=== PATIENT | male | born 1970 | race Caucasian/White ===

== ENCOUNTER → 2016-06-29 | Outpatient (CLI) | payer MEDICARE, OTHER ==
[2016-06-29 09:39] LABS: Basophils # (A) 0.1 k/uL (0-0.2); Basophils % (A) 2 %; CH 35.6; CHCM 34.8; Eosinophils # (A) 0.2 k/uL (0-0.7); Eosinophils % (A) 6 %; HCT 30.7 % (39.0-53.0); HDW 3.22; HGB 10.2 gm/dL (13.0-17.5); Luc # (Auto) 0.08; Luc % (Auto) 2; Lymphocytes # (A) 0.9 k/uL (1.0-4.8); Lymphocytes % (A) 23 %; Macrocytosis Slight; Mean Platelet Volume 9.9; Monocytes # (A) 0.3 k/uL (0-1.0); Monocytes % (A) 8 %; Neutrophils # (A) 2.4 k/uL (1.3-7.7); Neutrophils % (A) 60 %; RBC 2.98 m/uL (4.30-5.90); RDW 14.2 % (11.5-15.5); WBC (Perox) 4.42
[2016-06-29 09:58] LABS: Appearance,Urine Clear (Clear); Bacteria,Urine Rare /hpf; Bilirubin,Urine Negative (Negative); Glucose,Urine (UA) Negative (Negative); Ketones,Urine Negative (Negative); Leukocyte Esterase,Urine Small (Negative); Mucus,Urine Rare /hpf; Nitrite,Urine Negative (Negative); PH, Urine 5.5 (5.0-8.0); Particle Count 3024; Protein,Urine 2+ (Negative); RBC,Urine 2 /hpf (0-5); Specific Gravity,Urine 1.009 (1.001-1.035); UA Billing (MACRO vs. MICRO) MICRO; Urobilinogen,Urine <2.0 mg/dL (<2.0); WBC,Urine 6 /hpf (0-5)
[2016-06-29 11:32] LABS: Calcium 9.5 mg/dL (8.4-10.2); Magnesium 1.9 mg/dL (1.6-2.3); Phosphorous 3.8 mg/dL (2.5-4.5); Potassium 4.9 mmol/L (3.5-5.1); Total Bilirubin 0.3 mg/dL (0.2-1.3); Total Protein 5.8 g/dL (6.3-8.2); Uric Acid 7.3 mg/dL (3.5-8.5)
[2016-06-29 11:42] LABS: % Iron Saturation 35.5 % (20-50)
== END | disposition home or self-care (01) ==
LOC: LABWHC1 09:19
PROVIDERS: ATTEND Nurse Practitioner Family
DX: N18.4 Chronic kidney disease, stage 4 (severe) (principal); D63.1 Anemia in chronic kidney disease; E55.9 Vitamin D deficiency, unspecified; M10.9 Gout, unspecified; R31.9 Hematuria, unspecified
CPT/HCPCS: 36415; 80053; 81001; 82306; 82728; 83540; 83550; 83735; 83970; 84100; 84550; 85025

== ENCOUNTER 2016-07-21 11:36 | Emergency (ER) | payer MEDICARE, OTHER ==
[2016-07-21 11:46] VITALS: RESP 20
[2016-07-21 13:34] LABS: Calcium 9.4 mg/dL (8.4-10.2); Total Bilirubin 0.5 mg/dL (0.2-1.3); Total Protein 6.5 g/dL (6.3-8.2)
--- NOTE | 2016-07-21 13:46 | CT ---
EXAMINATION TYPE: CT brain petr carrizales con DATE OF EXAM: 07/21/2016 1:34 PM COMPARISON: NONE HISTORY: seizure today CT DLP: 1525.8 mGycm Automated exposure control for dose reduction was used. TECHNIQUE: CT scan of the head and cervical spine are performed without contrast. FINDINGS: There is no acute intracranial hemorrhage, mass effect, or midline shift identified. Dens e calcifications within the basal ganglia bilaterally. 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 Mild to moderate generalized degenerative change. Periventricular low attenuation compatible with rem ote microvascular ischemia. Calvarium intact.. Cervical spine is visualized in its entirety from C1 through upper thoracic levels and demonstrates s evere degenerative disc disease at all levels. Cervical spondylosis posteriorly seen in C4-C5, C5-C6, C6-C7, C7-T1 and T1-T2. Canal stenosis and foraminal encroachment suspected these levels. Significan t compression of the thecal sac at C7-T1. Multilevel facet arthropathy. IMPRESSION: 1. There is no acute fracture or dislocation evident in the cervical spine. There is severe degenerat hosea disc disease at all levels with multilevel significant canal stenosis and thecal sac compression. Follow-up MRI recommended. 2. No acute intracranial hemorrhage, mass effect, or midline shift is seen.
[2016-07-21 13:52] LABS: Basophils % (A) 0 %; CHCM 34.5; Eosinophils # (A) 0.1 k/uL (0-0.7); Eosinophils % (A) 1 %; HCT 35.2 % (39.0-53.0); HDW 3.37; HGB 11.8 gm/dL (13.0-17.5); Luc # (Auto) 0.05; Luc % (Auto) 1; Lymphocytes # (A) 0.5 k/uL (1.0-4.8); Lymphocytes % (A) 6 %; MCH 34.2 pg (25.0-35.0); MCHC 33.5 g/dL (31.0-37.0); Macrocytosis Slight; Monocytes # (A) 0.3 k/uL (0-1.0); Monocytes % (A) 3 %; Neutrophils # (A) 7.5 k/uL (1.3-7.7); Neutrophils % (A) 89 %; RBC 3.45 m/uL (4.30-5.90); RDW 14.5 % (11.5-15.5); WBC 8.4 k/uL (3.8-10.6); WBC (Perox) 8.66
[2016-07-21] MEDS ORDERED: SODIUM POLYSTYRENE SULFONATE 15 GM/60 ML BOTTLE PO STA (14:56)
[2016-07-21] MEDS ORDERED: INSULIN REGULAR 100 UNIT/ML VIAL SQ STA (14:56)
[2016-07-21 15:17] VITALS: BP 128/61; PULSE 96; TEMP 97.8
--- NOTE | 2016-07-21 15:24 | ED ---
Seizure HPI - General Chief Complaint: Seizure Stated Complaint: seizure Time Seen by Provider: 07/21/16 11:42 Source: EMS, RN notes reviewed Mode of arrival: EMS Limitations: physical limitation - History of Present Illness Initial Comments: This patient is a 46-year-old man with history of Down syndrome, who comes from his long-term care facility, in the company of his caregiver. She gives most of the history as the patient is only able to give answers to simple questions. The patient reportedly was in his usual state of health and then this morning had a seizure. The patient's caregiver reports that he fell over, struck his for head, and was having tonic-clonic movements. He also had a loss of urinary continence. She then describes him having a postictal period. -: minutes(s) Description of Episode: loss of consciousness, tonic-clonic movement, bladder incontinence -: second(s) Witnessed: yes - by other (By caregiver) Trauma: Yes (See above) Place: home Possible Precipitating Event: none Associated Symptoms: denies other symptoms Treatments Prior to Arrival: cervical collar - Related Data Home Medications Medication Instructions Recorded Confirmed Aspirin 81 mg PO DAILY 01/20/14 07/21/16 Insulin Glargine,Hum.rec.anlog 22 unit SQ HS 01/20/14 07/21/16 [Lantus Solostar] Simvastatin [Zocor] 10 mg PO HS 01/20/14 07/21/16 fluvoxaMINE MALEATE [Fluvoxamine 225 mg PO BID 01/20/14 07/21/16 Maleate ER] Lactulose 10 gm PO BID 10/02/14 07/21/16 Insulin Lispro [humaLOG Kwikpen] 6 units SQ AC-TID 10/14/14 07/21/16 Insulin Lispro [humaLOG Kwikpen] See Protocol SQ AC-TID 10/14/14 07/21/16 Calcium Acetate [Phoslo] 1,334 mg PO BID@0700,1200 07/21/16 07/21/16 Calcium Acetate [Phoslo] 667 mg PO DAILY@1800 07/21/16 07/21/16 Ergocalciferol [Vitamin D2] 50,000 unit PO Q14D 07/21/16 07/21/16 Famotidine [Pepcid] 20 mg PO QAM 07/21/16 07/21/16 Ferrous Sulfate 140 mg PO QAM 07/21/16 07/21/16 Levothyroxine Sodium [Synthroid] 175 mcg PO DAILY 07/21/16 07/21/16 Loratadine [Claritin] 10 mg PO HS 07/21/16 07/21/16 Melatonin 1 mg PO HS 07/21/16 07/21/16 Metoclopramide [Reglan] 5 mg PO BID@0700,1700 07/21/16 07/21/16 Sodium Polystyrene Sulfon/Sorb 15 gm PO DAILY 07/21/16 07/21/16 [Kionex 15 gm/60 ml Suspension] Tamsulosin [Flomax] 0.4 mg PO QAM 07/21/16 07/21/16 Vitamin B Complex 1 cap PO DAILY 07/21/16 07/21/16 Allergies Allergy/AdvReac Type Severity Reaction Status Date / Time No Known Allergies Allergy Verified 07/21/16 12:18 Review of Systems ROS Statement: Those systems with pertinent positive or pertinent negative responses have been documented in the HPI. ROS Other: All systems not noted in ROS Statement are negative. Limitations: ROS unobtainable due to patients medical condition Past Medical History Past Medical History: Diabetes Mellitus, Hyperlipidemia, Hypertension, Renal Disease, Seizure Disorder, Thyroid Disorder Additional Past Medical History / Comment(s): down syndrome, gastroparesis History of Any Multi-Drug Resistant Organisms: None Reported Past Surgical History: Unable to Obtain Additional Past Surgical History / Comment(s): EAR surgery Past Anesthesia/Blood Transfusion Reactions: Unable to Obtain Past Psychological History: No Psychological Hx Reported Additional Psychological History / Comment(s): PT LIVES AT [facility] HAS DOWNS SYNDROME, NEEDS STANDBY ASSIST.CANE WRITE HIS OWN NAME(PER CAREGIVER) SPEAKS OCC WORD, OCC OUTBURSTS. UNABLE TO DO RISK SCREEN QUESTIONS PERTAINING TO DEPRESSION-PT UNABLE TO ANSWER, BUT CAREGIVER FROM [facility] DID' NT THINK PT HAD PROBLEM WITH DEPRESSION. Smoking Status: Never smoker Past Alcohol Use History: None Reported Past Drug Use History: None Reported - Past Family History Mother Family Medical History: Unable to Obtain Father Family Medical History: Unable to Obtain General Exam Limitations: physical limitation General appearance: alert, in no apparent distress Head exam: Present: normocephalic, other (There is a small contusion to the frontal scalp approximately 3 cm in diameter. There is mild tenderness. There is no obvious bony deformity.) Eye exam: Present: normal appearance, PERRL. Absent: scleral icterus, conjunctival injection ENT exam: Present: mucous membranes dry Neck exam: Present: normal inspection, other (Cervical collar) Respiratory exam: Present: normal lung sounds bilaterally. Absent: respiratory distress, wheezes, rales, rhonchi, stridor Cardiovascular Exam: Present: regular rate, normal rhythm, systolic murmur ( Grade 1/6 systolic murmur). Absent: diastolic murmur, rubs, gallop GI/Abdominal exam: Present: soft. Absent: distended, tenderness, guarding, rebound, pulsatile mass Extremities exam: Present: normal inspection, normal capillary refill. Absent: pedal edema, calf tenderness Back exam: Present: normal inspection. Absent: CVA tenderness (R), CVA tenderness (L) Neurological exam: Present: alert, CN II-XII intact. Absent: motor sensory deficit Skin exam: Present: warm, dry, intact, normal color. Absent: rash Course Vital Signs 07/21/16 07/21/16 11:40 15:15 Temperature 98.1 F 97.8 F Pulse Rate 88 96 Respiratory 20 20 Rate Blood Pressure 134/63 128/61 O2 Sat by Pulse 93 L 99 Oximetry Medical Decision Making - Medical Decision Making This patient is a 46-year-old man with history of Down syndrome, brought for evaluation after he had a seizure. Patient is currently undergoing outpatient workup and will be starting dialysis soon. He does reportedly have appointment to have vascular access placement. Workup today does reveal some mild hyperkalemia and some hyperglycemia. These are treated here. The patient is at baseline per the caregiver. He has been up and ambulating. He did tolerate oral intake. I discussed further follow-up, including neurology consultation and also a recheck of the potassium. These things discussed with caregiver who is aware of how important is to have the potassium rechecked. - Lab Data Result diagrams: 07/21/16 13:01 07/21/16 13:01 Lab Results 07/21/16 07/21/16 Range/Units 13:01 13:01 WBC 8.4 (3.8-10.6) k/uL RBC 3.45 L (4.30-5.90) m/uL Hgb 11.8 L (13.0-17.5) gm/dL Hct 35.2 L (39.0-53.0) % MCV 102.0 H (80.0-100.0) fL MCH 34.2 (25.0-35.0) pg MCHC 33.5 (31.0-37.0) g/dL RDW 14.5 (11.5-15.5) % Plt Count 165 (150-450) k/uL Neutrophils % 89 % Lymphocytes % 6 % Monocytes % 3 % Eosinophils % 1 % Basophils % 0 % Neutrophils # 7.5 (1.3-7.7) k/uL Lymphocytes # 0.5 L (1.0-4.8) k/uL Monocytes # 0.3 (0-1.0) k/uL Eosinophils # 0.1 (0-0.7) k/uL Basophils # 0.0 (0-0.2) k/uL Macrocytosis Slight Sodium 138 (137-145) mmol/L Potassium 6.0 H (3.5-5.1) mmol/L Chloride 99 (98-107) mmol/L Carbon Dioxide 29 (22-30) mmol/L Anion Gap 10 mmol/L BUN 69 H (9-20) mg/dL Creatinine 4.11 H (0.66-1.25) mg/dL Est GFR (MDRD) Af Amer 19 (>60 ml/min/1.73 sqM) Est GFR (MDRD) Non-Af 16 (>60 ml/min/1.73 sqM) Glucose 331 H (74-99) mg/dL Calcium 9.4 (8.4-10.2) mg/dL Total Bilirubin 0.5 (0.2-1.3) mg/dL AST 23 (17-59) U/L ALT 38 (21-72) U/L Alkaline Phosphatase 75 (38-126) U/L Total Protein 6.5 (6.3-8.2) g/dL Albumin 3.6 (3.5-5.0) g/dL Disposition Clinical Impression: Generalized seizure, Hyperglycemia due to type 1 diabetes mellitus, Hyperkalemia Disposition: HOME SELF-CARE Condition: Fair Instructions: Recurrent Seizures in Adults (ED), Chronic Kidney Disease (ED), Hyperkalemia (ED) Referrals: Hawk Cazares MD [Primary Care Provider] - 1-2 days Scott Mcqueen MD [STAFF PHYSICIAN] - 1-2 days Philly Muñoz MD [STAFF PHYSICIAN] - 1-2 days
== END 2016-07-21 16:07 | disposition home or self-care (01) ==
LOC: EC 11:36
DX: G40.409 Other generalized epilepsy and epileptic syndromes, not intractable, without status epilepticus (principal); E10.65 Type 1 diabetes mellitus with hyperglycemia; E87.5 Hyperkalemia; S00.03XA Contusion of scalp, initial encounter; W01.10XA Fall on same level from slipping, tripping and stumbling with subsequent striking against unspecified object, initial encounter; Y92.009 Unspecified place in unspecified non-institutional (private) residence as the place of occurrence of the external cause; I12.9 Hypertensive chronic kidney disease with stage 1 through stage 4 chronic kidney disease, or unspecified chronic kidney disease; N18.9 Chronic kidney disease, unspecified; K31.84 Gastroparesis; Q90.9 Down syndrome, unspecified; E07.9 Disorder of thyroid, unspecified; E78.5 Hyperlipidemia, unspecified; Z79.4 Long term (current) use of insulin; Z79.82 Long term (current) use of aspirin; Z79.899 Other long term (current) drug therapy
CPT/HCPCS: 36415; 70450; 72125; 80053; 85025; 93005; 99285

== ENCOUNTER 2016-12-20 20:29 | Emergency (ER) | payer MEDICARE, OTHER ==
[2016-12-20 20:34] LABS: Glucose,Whole Blood 85 mg/dL (75-99)
[2016-12-20 20:47] LABS: Glucose,Whole Blood 73 mg/dL (75-99)
[2016-12-20 21:20] LABS: Glucose,Whole Blood 91 mg/dL (75-99)
--- NOTE | 2016-12-20 21:40 | ED ---
General Adult HPI - General Chief complaint: Recheck/Abnormal Lab/Rx Stated complaint: HYPOGLYCEMIA Time Seen by Provider: 12/20/16 20:45 Source: EMS (History taken from heating plant superintendent.), RN notes reviewed Mode of arrival: EMS Limitations: altered mental status - History of Present Illness Initial comments: Patient is a pleasant 46-year-old male presenting to the emergency department with hypoglycemia. Patient had hypoglycemia this morning and did receive his). Patient then became hyper glycemic throughout the day. Patient's blood sugar started dropping again prior to arrival. Patient has developmental delay and is not talking at this time. Grocery Store Associate states this is normal. No change in behavior. No recent illness. - Related Data Home Medications Medication Instructions Recorded Confirmed Aspirin 81 mg PO DAILY 01/20/14 12/20/16 Insulin Glargine,Hum.rec.anlog 22 unit SQ HS 01/20/14 12/20/16 [Lantus Solostar] Simvastatin [Zocor] 10 mg PO HS 01/20/14 12/20/16 Lactulose 10 gm PO BID 10/02/14 12/20/16 Insulin Lispro [humaLOG Kwikpen] 6 units SQ AC-TID 10/14/14 12/20/16 Insulin Lispro [humaLOG Kwikpen] See Protocol SQ AC-TID 10/14/14 12/20/16 Ergocalciferol [Vitamin D2] 50,000 unit PO Q14D 07/21/16 12/20/16 Famotidine [Pepcid] 20 mg PO QAM 07/21/16 12/20/16 Ferrous Sulfate 140 mg PO QAM 07/21/16 12/20/16 Levothyroxine Sodium [Synthroid] 175 mcg PO DAILY 07/21/16 12/20/16 Loratadine [Claritin] 10 mg PO HS 07/21/16 12/20/16 Metoclopramide [Reglan] 5 mg PO BID@0700,1700 07/21/16 12/20/16 Sodium Polystyrene Sulfon/Sorb 15 gm PO DAILY 07/21/16 12/20/16 [Kionex 15 gm/60 ml Suspension] Tamsulosin [Flomax] 0.4 mg PO QAM 07/21/16 12/20/16 Vitamin B Complex 1 cap PO DAILY 07/21/16 12/20/16 fluvoxaMINE MALEATE [Luvox] 150 mg PO BID 12/20/16 12/20/16 Allergies Allergy/AdvReac Type Severity Reaction Status Date / Time No Known Allergies Allergy Verified 12/20/16 20:49 Review of Systems ROS Statement: Those systems with pertinent positive or pertinent negative responses have been documented in the HPI. ROS Other: All systems not noted in ROS Statement are negative. Limitations: ROS unobtainable due to patients medical condition Past Medical History Past Medical History: Diabetes Mellitus, Hyperlipidemia, Hypertension, Renal Disease, Thyroid Disorder Additional Past Medical History / Comment(s): down syndrome, gastroparesis History of Any Multi-Drug Resistant Organisms: None Reported Past Surgical History: Unable to Obtain Additional Past Surgical History / Comment(s): EAR surgery Past Anesthesia/Blood Transfusion Reactions: Unable to Obtain Past Psychological History: No Psychological Hx Reported Smoking Status: Never smoker Past Alcohol Use History: None Reported Past Drug Use History: None Reported - Past Family History Mother Family Medical History: Unable to Obtain Father Family Medical History: Unable to Obtain General Exam Limitations: altered mental status General appearance: alert, in no apparent distress Head exam: Present: atraumatic Eye exam: Present: normal appearance Neck exam: Present: normal inspection Respiratory exam: Present: normal lung sounds bilaterally Cardiovascular Exam: Present: regular rate, normal rhythm GI/Abdominal exam: Present: soft. Absent: tenderness Extremities exam: Present: normal inspection Neurological exam: Present: alert Psychiatric exam: Present: normal affect, normal mood Skin exam: Present: normal color Course Vital Signs 12/20/16 12/20/16 20:30 21:53 Temperature 98.5 F Pulse Rate 102 H 91 Respiratory 17 18 Rate Blood Pressure 120/67 159/78 O2 Sat by Pulse 97 99 Oximetry Medical Decision Making - Medical Decision Making Patient reexamined and resting comfortably in bed. Grocery Store Associate updated on results and need for follow-up. Patient has had several stable blood sugars. - Lab Data Result diagrams: 12/20/16 21:40 12/20/16 21:40 Lab Results 12/20/16 12/20/16 12/20/16 Range/Units 20:31 20:46 21:18 WBC (3.8-10.6) k/uL RBC (4.30-5.90) m/uL Hgb (13.0-17.5) gm/dL Hct (39.0-53.0) % MCV (80.0-100.0) fL MCH (25.0-35.0) pg MCHC (31.0-37.0) g/dL RDW (11.5-15.5) % Plt Count (150-450) k/uL Neutrophils % % Lymphocytes % % Monocytes % % Eosinophils % % Basophils % % Neutrophils # (1.3-7.7) k/uL Lymphocytes # (1.0-4.8) k/uL Monocytes # (0-1.0) k/uL Eosinophils # (0-0.7) k/uL Basophils # (0-0.2) k/uL Macrocytosis Sodium (137-145) mmol/L Potassium (3.5-5.1) mmol/L Chloride (98-107) mmol/L Carbon Dioxide (22-30) mmol/L Anion Gap mmol/L BUN (9-20) mg/dL Creatinine (0.66-1.25) mg/dL Est GFR (MDRD) Af Amer (>60 ml/min/1.73 sqM) Est GFR (MDRD) Non-Af (>60 ml/min/1.73 sqM) Glucose (74-99) mg/dL POC Glucose (mg/dL) 85 73 L 91 (75-99) mg/dL POC Glu Catering Assistant PEYTON Harris, Anushka Harris, Manny Hughes Calcium (8.4-10.2) mg/dL Total Bilirubin (0.2-1.3) mg/dL AST (17-59) U/L ALT (21-72) U/L Alkaline Phosphatase (38-126) U/L Total Protein (6.3-8.2) g/dL Albumin (3.5-5.0) g/dL Urine Color Urine Appearance (Clear) Urine pH (5.0-8.0) Ur Specific [place] (1.001-1.035) Urine Protein (Negative) Urine Glucose (UA) (Negative) Urine Ketones (Negative) Urine Blood (Negative) Urine Nitrite (Negative) Urine Bilirubin (Negative) Urine Urobilinogen (<2.0) mg/dL Ur Leukocyte Esterase (Negative) Urine RBC (0-5) /hpf Urine WBC (0-5) /hpf Urine Bacteria (None) /hpf Hyaline Casts (0-2) /lpf 12/20/16 12/20/16 12/20/16 Range/Units 21:33 21:40 21:40 WBC 6.7 (3.8-10.6) k/uL RBC 2.80 L (4.30-5.90) m/uL Hgb 9.8 L (13.0-17.5) gm/dL Hct 28.3 L (39.0-53.0) % MCV 101.1 H (80.0-100.0) fL MCH 35.0 (25.0-35.0) pg MCHC 34.6 (31.0-37.0) g/dL RDW 13.6 (11.5-15.5) % Plt Count 165 (150-450) k/uL Neutrophils % 80 % Lymphocytes % 10 % Monocytes % 6 % Eosinophils % 3 % Basophils % 1 % Neutrophils # 5.4 (1.3-7.7) k/uL Lymphocytes # 0.6 L (1.0-4.8) k/uL Monocytes # 0.4 (0-1.0) k/uL Eosinophils # 0.2 (0-0.7) k/uL Basophils # 0.1 (0-0.2) k/uL Macrocytosis Slight Sodium 141 (137-145) mmol/L Potassium 5.0 (3.5-5.1) mmol/L Chloride 106 (98-107) mmol/L Carbon Dioxide 23 (22-30) mmol/L Anion Gap 12 mmol/L BUN 68 H (9-20) mg/dL Creatinine 4.00 H (0.66-1.25) mg/dL Est GFR (MDRD) Af Amer 20 (>60 ml/min/1.73 sqM) Est GFR (MDRD) Non-Af 16 (>60 ml/min/1.73 sqM) Glucose 104 H (74-99) mg/dL POC Glucose (mg/dL) (75-99) mg/dL POC Glu Catering Assistant ID Calcium 8.8 (8.4-10.2) mg/dL Total Bilirubin 0.2 (0.2-1.3) mg/dL AST 23 (17-59) U/L ALT 39 (21-72) U/L Alkaline Phosphatase 70 (38-126) U/L Total Protein 6.1 L (6.3-8.2) g/dL Albumin 3.5 (3.5-5.0) g/dL Urine Color Light Yellow Urine Appearance Clear (Clear) Urine pH 5.5 (5.0-8.0) Ur Specific [place] 1.009 (1.001-1.035) Urine Protein 2+ H (Negative) Urine Glucose (UA) 1+ H (Negative) Urine Ketones Negative (Negative) Urine Blood Trace H (Negative) Urine Nitrite Negative (Negative) Urine Bilirubin Negative (Negative) Urine Urobilinogen <2.0 (<2.0) mg/dL Ur Leukocyte Esterase Negative (Negative) Urine RBC 1 (0-5) /hpf Urine WBC 1 (0-5) /hpf Urine Bacteria Rare H (None) /hpf Hyaline Casts 1 (0-2) /lpf 12/20/16 Range/Units 21:48 WBC (3.8-10.6) k/uL RBC (4.30-5.90) m/uL Hgb (13.0-17.5) gm/dL Hct (39.0-53.0) % MCV (80.0-100.0) fL MCH (25.0-35.0) pg MCHC (31.0-37.0) g/dL RDW (11.5-15.5) % Plt Count (150-450) k/uL Neutrophils % % Lymphocytes % % Monocytes % % Eosinophils % % Basophils % % Neutrophils # (1.3-7.7) k/uL Lymphocytes # (1.0-4.8) k/uL Monocytes # (0-1.0) k/uL Eosinophils # (0-0.7) k/uL Basophils # (0-0.2) k/uL Macrocytosis Sodium (137-145) mmol/L Potassium (3.5-5.1) mmol/L Chloride (98-107) mmol/L Carbon Dioxide (22-30) mmol/L Anion Gap mmol/L BUN (9-20) mg/dL Creatinine (0.66-1.25) mg/dL Est GFR (MDRD) Af Amer (>60 ml/min/1.73 sqM) Est GFR (MDRD) Non-Af (>60 ml/min/1.73 sqM) Glucose (74-99) mg/dL POC Glucose (mg/dL) 119 H (75-99) mg/dL POC Glu Catering Assistant Anushka Stephen Calcium (8.4-10.2) mg/dL Total Bilirubin (0.2-1.3) mg/dL AST (17-59) U/L ALT (21-72) U/L Alkaline Phosphatase (38-126) U/L Total Protein (6.3-8.2) g/dL Albumin (3.5-5.0) g/dL Urine Color Urine Appearance (Clear) Urine pH (5.0-8.0) Ur Specific [place] (1.001-1.035) Urine Protein (Negative) Urine Glucose (UA) (Negative) Urine Ketones (Negative) Urine Blood (Negative) Urine Nitrite (Negative) Urine Bilirubin (Negative) Urine Urobilinogen (<2.0) mg/dL Ur Leukocyte Esterase (Negative) Urine RBC (0-5) /hpf Urine WBC (0-5) /hpf Urine Bacteria (None) /hpf Hyaline Casts (0-2) /lpf - Radiology Data Radiology results: image reviewed (Chest x-ray does show some mild increase in interstitial markings) Disposition Clinical Impression: Hypoglycemia Disposition: HOME SELF-CARE Condition: Stable Instructions: Hypoglycemia in a Person with Diabetes (ED) Additional Instructions: Please follow-up with primary care physician within the next 24 hours. Patient will need further care regarding sugar levels. Return for uncontrolled blood sugar, weakness or confusion, worsening symptoms or other concerns. Referrals: Hawk Cazares MD [Primary Care Provider] - 1-2 days Time of Disposition: 22:32
[2016-12-20 21:49] LABS: Glucose,Whole Blood 119 mg/dL (75-99)
[2016-12-20 21:56] VITALS: PULSE 91; RESP 18
[2016-12-20 22:06] LABS: Basophils # (A) 0.1 k/uL (0-0.2); Basophils % (A) 1 %; CHCM 35.7; Eosinophils # (A) 0.2 k/uL (0-0.7); Eosinophils % (A) 3 %; HCT 28.3 % (39.0-53.0); HDW 2.76; HGB 9.8 gm/dL (13.0-17.5); Luc # (Auto) 0.09; Luc % (Auto) 1; Lymphocytes # (A) 0.6 k/uL (1.0-4.8); Lymphocytes % (A) 10 %; MCHC 34.6 g/dL (31.0-37.0); MCV 101.1 fL (80.0-100.0); Macrocytosis Slight; Mean Platelet Volume 8.1; Monocytes # (A) 0.4 k/uL (0-1.0); Monocytes % (A) 6 %; Neutrophils # (A) 5.4 k/uL (1.3-7.7); Neutrophils % (A) 80 %; RDW 13.6 % (11.5-15.5); WBC 6.7 k/uL (3.8-10.6); WBC (Perox) 6.51
--- NOTE | 2016-12-20 22:07 | XR ---
EXAMINATION TYPE: XR chest 2V DATE OF EXAM: 12/20/2016 COMPARISON: October 03, 2014 HISTORY: Weakness TECHNIQUE: Frontal and lateral views of the chest are obtained. FINDINGS: There is mild silhouetting of the lung vasculature bilaterally and symmetrically, with occ asional septal lines. The pattern suggests mild interstitial phase pulmonary edema. The cardiac silho uette is mildly enlarged. There are no pleural effusions. No abnormal gas collections. Bones and soft tissues are unremarkable. IMPRESSION: Findings suggest mild interstitial phase pulmonary edema of cardiogenic etiology.
[2016-12-20 22:16] LABS: Calcium 8.8 mg/dL (8.4-10.2); Total Bilirubin 0.2 mg/dL (0.2-1.3); Total Protein 6.1 g/dL (6.3-8.2)
[2016-12-20 22:19] LABS: Appearance,Urine Clear (Clear); Bacteria,Urine Rare /hpf; Bilirubin,Urine Negative (Negative); Glucose,Urine (UA) 1+ (Negative); Ketones,Urine Negative (Negative); Leukocyte Esterase,Urine Negative (Negative); Nitrite,Urine Negative (Negative); PH, Urine 5.5 (5.0-8.0); Particle Count 672; Protein,Urine 2+ (Negative); RBC,Urine 1 /hpf (0-5); Specific Gravity,Urine 1.009 (1.001-1.035); UA Billing (MACRO vs. MICRO) MICRO; Urobilinogen,Urine <2.0 mg/dL (<2.0); WBC,Urine 1 /hpf (0-5)
[2016-12-20 22:57] LABS: Glucose,Whole Blood 172 mg/dL (75-99)
[2016-12-20 22:58] VITALS: BP 160/75; TEMP 97.5
== END 2016-12-20 23:07 | disposition home or self-care (01) ==
LOC: EC 20:29
DX: E11.649 Type 2 diabetes mellitus with hypoglycemia without coma (principal); R41.82 Altered mental status, unspecified; R91.8 Other nonspecific abnormal finding of lung field; E78.5 Hyperlipidemia, unspecified; I10 Essential (primary) hypertension; E07.9 Disorder of thyroid, unspecified; Z79.4 Long term (current) use of insulin; Z79.82 Long term (current) use of aspirin; Z79.899 Other long term (current) drug therapy
CPT/HCPCS: 36415; 71020; 80053; 81001; 85025; 99285

== ENCOUNTER 2017-06-23 02:30 | Emergency (ER) | payer MEDICARE, OTHER ==
[2017-06-23 02:40] VITALS: RESP 16; TEMP 97.3
[2017-06-23 03:06] LABS: Glucose,Whole Blood 140 mg/dL (75-99)
[2017-06-23 03:19] LABS: Albumin 3.3 g/dL (3.5-5.0); Calcium 8.9 mg/dL (8.4-10.2); Potassium 4.2 mmol/L (3.5-5.1); Total Bilirubin 0.3 mg/dL (0.2-1.3); Total Protein 5.8 g/dL (6.3-8.2)
[2017-06-23 03:21] LABS: Anisocytosis Slight; Basophils % (A) 1 %; Eosinophils # (A) 0.1 k/uL (0-0.7); Eosinophils % (A) 1 %; HCT 31.9 % (39.0-53.0); HGB 10.6 gm/dL (13.0-17.5); Lymphocytes # (A) 0.5 k/uL (1.0-4.8); Lymphocytes % (A) 8 %; MCH 34.1 pg (25.0-35.0); MCHC 33.1 g/dL (31.0-37.0); MCV 103.1 fL (80.0-100.0); Macrocytosis Moderate; Mean Platelet Volume 8.2; Monocytes # (A) 0.2 k/uL (0-1.0); Monocytes % (A) 4 %; Neutrophils # (A) 5.3 k/uL (1.3-7.7); Neutrophils % (A) 85 %; Platelet Count 129 k/uL (150-450); RDW 16.7 % (11.5-15.5); WBC 6.2 k/uL (3.8-10.6)
[2017-06-23 03:32] LABS: Glucose,Whole Blood 130 mg/dL (75-99)
--- NOTE | 2017-06-23 03:32 | ED ---
Recheck HPI - General Chief Complaint: Recheck/Abnormal Lab/Rx Stated Complaint: Hypoglycemia Time Seen by Provider: 06/23/17 02:35 Source: patient, EMS, RN notes reviewed Mode of arrival: EMS Limitations: altered mental status - History of Present Illness Initial Comments: This a 47-year-old male presents emergency department via EMS for hypoglycemia. Patient has a history of Down syndrome essentially nonverbal was found to be not acting appropriately seemed to possibly have a seizure as he has a history of seizure dose on have blood sugar of 40. Patient was given D10 250 mL bolus which patient aroused at that time. Patient is at his normal baseline per [facility] worker. Patient did receive his nighttime insulin and reportedly had a snack around 9:30pm. There is no other reported complaints. - Related Data Home Medications Medication Instructions Recorded Confirmed Aspirin 81 mg PO DAILY 01/20/14 12/20/16 Insulin Glargine,Hum.rec.anlog 22 unit SQ HS 01/20/14 12/20/16 [Lantus Solostar] Simvastatin [Zocor] 10 mg PO HS 01/20/14 12/20/16 Lactulose 10 gm PO BID 10/02/14 12/20/16 Insulin Lispro [humaLOG Kwikpen] 6 units SQ AC-TID 10/14/14 12/20/16 Insulin Lispro [humaLOG Kwikpen] See Protocol SQ AC-TID 10/14/14 12/20/16 Ergocalciferol [Vitamin D2] 50,000 unit PO Q14D 07/21/16 12/20/16 Famotidine [Pepcid] 20 mg PO QAM 07/21/16 12/20/16 Ferrous Sulfate 140 mg PO QAM 07/21/16 12/20/16 Levothyroxine Sodium [Synthroid] 175 mcg PO DAILY 07/21/16 12/20/16 Loratadine [Claritin] 10 mg PO HS 07/21/16 12/20/16 Metoclopramide [Reglan] 5 mg PO BID@0700,1700 07/21/16 12/20/16 Sodium Polystyrene Sulfon/Sorb 15 gm PO DAILY 07/21/16 12/20/16 [Kionex 15 gm/60 ml Suspension] Tamsulosin [Flomax] 0.4 mg PO QAM 07/21/16 12/20/16 Vitamin B Complex 1 cap PO DAILY 07/21/16 12/20/16 fluvoxaMINE MALEATE [Luvox] 150 mg PO BID 12/20/16 12/20/16 Allergies Allergy/AdvReac Type Severity Reaction Status Date / Time No Known Allergies Allergy Verified 12/20/16 20:49 Review of Systems ROS Statement: Those systems with pertinent positive or pertinent negative responses have been documented in the HPI. ROS Other: All systems not noted in ROS Statement are negative. Past Medical History Past Medical History: Diabetes Mellitus, Hyperlipidemia, Hypertension, Renal Disease, Thyroid Disorder Additional Past Medical History / Comment(s): down syndrome, gastroparesis History of Any Multi-Drug Resistant Organisms: None Reported Past Surgical History: Unable to Obtain Additional Past Surgical History / Comment(s): EAR surgery Past Anesthesia/Blood Transfusion Reactions: Unable to Obtain Past Psychological History: No Psychological Hx Reported Smoking Status: Never smoker Past Alcohol Use History: None Reported Past Drug Use History: None Reported - Past Family History Mother Family Medical History: Unable to Obtain Father Family Medical History: Unable to Obtain General Exam Limitations: altered mental status Head exam: Present: atraumatic, normocephalic, normal inspection Eye exam: Present: normal appearance, PERRL, EOMI. Absent: scleral icterus, conjunctival injection, periorbital swelling ENT exam: Present: normal oropharynx Neck exam: Present: normal inspection, full ROM. Absent: tenderness, meningismus, lymphadenopathy Respiratory exam: Present: normal lung sounds bilaterally. Absent: respiratory distress, wheezes, rales, rhonchi, stridor Cardiovascular Exam: Present: regular rate, normal rhythm, normal heart sounds. Absent: systolic murmur, diastolic murmur, rubs, gallop, clicks Neurological exam: Present: alert Skin exam: Present: warm, dry, intact, normal color. Absent: rash Course Vital Signs 06/23/17 02:31 Temperature 97.3 F L Pulse Rate 70 Respiratory 16 Rate Blood Pressure 155/86 O2 Sat by Pulse 94 L Oximetry Medical Decision Making - Medical Decision Making 47-year-old male present emergency department for hypoglycemia. Patient's blood sugar has stabilized. Patient blood sugar is currently 130. Patient is awake alert and his normal baseline Patient sugar is updated and results she agrees that he is at his baseline. Patient we discharged at this time back to [facility] home. - Lab Data Result diagrams: 06/23/17 02:54 06/23/17 02:54 Lab Results 06/23/17 06/23/17 06/23/17 Range/Units 02:51 02:54 02:54 WBC 6.2 (3.8-10.6) k/uL RBC 3.10 L (4.30-5.90) m/uL Hgb 10.6 L (13.0-17.5) gm/dL Hct 31.9 L (39.0-53.0) % MCV 103.1 H (80.0-100.0) fL MCH 34.1 (25.0-35.0) pg MCHC 33.1 (31.0-37.0) g/dL RDW 16.7 H (11.5-15.5) % Plt Count 129 L (150-450) k/uL Neutrophils % 85 % Lymphocytes % 8 % Monocytes % 4 % Eosinophils % 1 % Basophils % 1 % Neutrophils # 5.3 (1.3-7.7) k/uL Lymphocytes # 0.5 L (1.0-4.8) k/uL Monocytes # 0.2 (0-1.0) k/uL Eosinophils # 0.1 (0-0.7) k/uL Basophils # 0.0 (0-0.2) k/uL Anisocytosis Slight Macrocytosis Moderate Sodium 139 (137-145) mmol/L Potassium 4.2 (3.5-5.1) mmol/L Chloride 100 (98-107) mmol/L Carbon Dioxide 34 H (22-30) mmol/L Anion Gap 5 mmol/L BUN 21 H (9-20) mg/dL Creatinine 3.20 H (0.66-1.25) mg/dL Est GFR (MDRD) Af Amer 25 (>60 ml/min/1.73 sqM) Est GFR (MDRD) Non-Af 21 (>60 ml/min/1.73 sqM) Glucose 153 H (74-99) mg/dL POC Glucose (mg/dL) 140 H (75-99) mg/dL POC Glu Associate Project Manager ID Toro, Taylor Calcium 8.9 (8.4-10.2) mg/dL Total Bilirubin 0.3 (0.2-1.3) mg/dL AST 31 (17-59) U/L ALT 41 (21-72) U/L Alkaline Phosphatase 76 (38-126) U/L Total Protein 5.8 L (6.3-8.2) g/dL Albumin 3.3 L (3.5-5.0) g/dL 06/23/17 Range/Units 03:30 WBC (3.8-10.6) k/uL RBC (4.30-5.90) m/uL Hgb (13.0-17.5) gm/dL Hct (39.0-53.0) % MCV (80.0-100.0) fL MCH (25.0-35.0) pg MCHC (31.0-37.0) g/dL RDW (11.5-15.5) % Plt Count (150-450) k/uL Neutrophils % % Lymphocytes % % Monocytes % % Eosinophils % % Basophils % % Neutrophils # (1.3-7.7) k/uL Lymphocytes # (1.0-4.8) k/uL Monocytes # (0-1.0) k/uL Eosinophils # (0-0.7) k/uL Basophils # (0-0.2) k/uL Anisocytosis Macrocytosis Sodium (137-145) mmol/L Potassium (3.5-5.1) mmol/L Chloride (98-107) mmol/L Carbon Dioxide (22-30) mmol/L Anion Gap mmol/L BUN (9-20) mg/dL Creatinine (0.66-1.25) mg/dL Est GFR (MDRD) Af Amer (>60 ml/min/1.73 sqM) Est GFR (MDRD) Non-Af (>60 ml/min/1.73 sqM) Glucose (74-99) mg/dL POC Glucose (mg/dL) 130 H (75-99) mg/dL POC Glu Associate Project Manager ID Tay, Tammy Calcium (8.4-10.2) mg/dL Total Bilirubin (0.2-1.3) mg/dL AST (17-59) U/L ALT (21-72) U/L Alkaline Phosphatase (38-126) U/L Total Protein (6.3-8.2) g/dL Albumin (3.5-5.0) g/dL Disposition Clinical Impression: Hypoglycemia Disposition: HOME SELF-CARE Condition: Stable Instructions: Hypoglycemia in a Person with Diabetes (ED) Additional Instructions: Please return to the Emergency Department if symptoms worsen or any other concerns. Referrals: Hawk Cazares MD [Primary Care Provider] - 1-2 days Time of Disposition: 03:45
[2017-06-23 03:58] VITALS: BP 171/81; PULSE 68
== END 2017-06-23 04:08 | disposition home or self-care (01) ==
LOC: EC 02:30
DX: E11.649 Type 2 diabetes mellitus with hypoglycemia without coma (principal); R41.82 Altered mental status, unspecified; E78.5 Hyperlipidemia, unspecified; I10 Essential (primary) hypertension; E11.43 Type 2 diabetes mellitus with diabetic autonomic (poly)neuropathy; K31.84 Gastroparesis; E07.9 Disorder of thyroid, unspecified; Z79.82 Long term (current) use of aspirin; Z79.4 Long term (current) use of insulin; Z79.899 Other long term (current) drug therapy; Z87.19 Personal history of other diseases of the digestive system
CPT/HCPCS: 36415; 80053; 85025; 99284

== ENCOUNTER → 2017-07-17 | Outpatient (CLI) | payer MEDICARE, OTHER ==
--- NOTE | 2017-07-17 12:15 | FL ---
EXAMINATION TYPE: FL barium swallow w video DATE OF EXAM: 07/17/2017 MODIFIED SWALLOW / DEGLUTITION STUDY CLINICAL HISTORY: Dysphagia. History of cough and choking. TECHNIQUE: Deglutition study is performed utilizing thin liquid barium, honey and nectar thick liqui d barium, barium thick applesauce, and barium coated cracker. A total of 87 seconds of fluoroscopic t nina was utilized during procedure. Approximately 12 cine images are acquired but 0 are sent to PACS. COMPARISON: Prior swallow study report May 08, 2016. FINDINGS: The oral and pharyngeal phases show satisfactory initiation and propagation with all modali ties tested. Normal mastication is seen with solid modalities tested. There is no evidence of penet ration or aspiration with any modality tested. No significant pharyngeal residue was appreciated. IMPRESSION: No penetration or aspiration observed. Please refer to speech therapist notes for furthe r details if necessary.
== END | disposition home or self-care (01) ==
LOC: RADFLMAIN 10:51
PROVIDERS: ATTEND Nurse Practitioner Family
DX: R13.10 Dysphagia, unspecified (principal); R05 Cough
CPT/HCPCS: 74230

== ENCOUNTER 2017-08-01 17:10 | Inpatient (IN) | payer MEDICARE, OTHER ==
[2017-08-01] MEDS ORDERED: SODIUM CHLORIDE 0.9% 1,000 ML IV STA (18:28)
[2017-08-01] MEDS ORDERED: IPRATROPIUM-ALBUTEROL 3 ML NEB INHALATION STA (18:28)
[2017-08-01 18:47] LABS: Glucose,Whole Blood 203 mg/dL (75-99)
--- NOTE | 2017-08-01 18:58 | ED ---
General Adult HPI - General Chief complaint: Fever Stated complaint: poss pneumonia Time Seen by Provider: 08/01/17 18:20 Source: RN notes reviewed, Caregiver Mode of arrival: ambulatory Limitations: altered mental status - History of Present Illness Initial comments: 47-year-old male who suffers from Down syndrome and is nonverbal presents with chief complaint of worsening cough low-grade fever and elevated glucose. The patient's been sick for about the last week or so but it's been getting worse over last few days. They state there is sputum production with the cough. They state low-grade fevers on and off. They state his glucoses have been running in the 500s. They had a physician, evaluate the patient today and they were referred here. Unable to do review of systems due to patient's normal mentation. - Related Data Home Medications Medication Instructions Recorded Confirmed Insulin Glargine,Hum.rec.anlog 24 unit SQ HS 01/20/14 08/01/17 [Lantus Solostar] Simvastatin [Zocor] 10 mg PO HS 01/20/14 08/01/17 Lactulose 10 gm PO BID 10/02/14 08/01/17 Insulin Lispro [humaLOG Kwikpen] 7 units SQ AC-TID@07,12,18 10/14/14 08/01/17 Insulin Lispro [humaLOG Kwikpen] See Protocol SQ AC-TID PRN 10/14/14 08/01/17 Ergocalciferol [Vitamin D2] 50,000 unit PO Q14D 07/21/16 08/01/17 Famotidine [Pepcid] 20 mg PO QAM 07/21/16 08/01/17 Ferrous Sulfate 140 mg PO QAM 07/21/16 08/01/17 Levothyroxine Sodium [Synthroid] 175 mcg PO DAILY 07/21/16 08/01/17 Loratadine [Claritin] 10 mg PO HS 07/21/16 08/01/17 Metoclopramide [Reglan] 5 mg PO BID@0700,1700 07/21/16 08/01/17 Sodium Polystyrene Sulfon/Sorb 15 gm PO DAILY 07/21/16 08/01/17 [Kionex 15 gm/60 ml Suspension] Tamsulosin [Flomax] 0.4 mg PO QAM 07/21/16 08/01/17 Vitamin B Complex 1 cap PO DAILY 07/21/16 08/01/17 fluvoxaMINE MALEATE [Luvox] 150 mg PO BID@0700,2100 12/20/16 08/01/17 Gabapentin [Neurontin] 100 mg PO HS@2100 08/01/17 08/01/17 Sevelamer [Renvela] 800 mg PO DAILY@1700 08/01/17 08/01/17 Allergies Allergy/AdvReac Type Severity Reaction Status Date / Time No Known Allergies Allergy Verified 08/01/17 19:03 Review of Systems ROS Statement: Those systems with pertinent positive or pertinent negative responses have been documented in the HPI. ROS Other: All systems not noted in ROS Statement are negative. Past Medical History Past Medical History: Diabetes Mellitus, Hyperlipidemia, Hypertension, Renal Disease, Thyroid Disorder Additional Past Medical History / Comment(s): down syndrome, gastroparesis History of Any Multi-Drug Resistant Organisms: None Reported Past Surgical History: Unable to Obtain Additional Past Surgical History / Comment(s): EAR surgery Past Anesthesia/Blood Transfusion Reactions: Unable to Obtain Past Psychological History: No Psychological Hx Reported Smoking Status: Never smoker Past Alcohol Use History: None Reported Past Drug Use History: None Reported - Past Family History Mother Family Medical History: Unable to Obtain Father Family Medical History: Unable to Obtain General Exam Limitations: altered mental status General appearance: alert, in no apparent distress Eye exam: Present: normal appearance, PERRL, EOMI. Absent: scleral icterus, conjunctival injection, periorbital swelling ENT exam: Present: normal exam, mucous membranes moist Neck exam: Present: normal inspection. Absent: tenderness, meningismus, lymphadenopathy Respiratory exam: Present: normal lung sounds bilaterally, wheezes (Mild). Absent: respiratory distress, rales, rhonchi, stridor, chest wall tenderness Cardiovascular Exam: Present: regular rate, normal rhythm, normal heart sounds. Absent: systolic murmur, diastolic murmur, rubs, gallop, clicks GI/Abdominal exam: Present: soft, normal bowel sounds. Absent: distended, tenderness, guarding, rebound, rigid Extremities exam: Present: normal inspection, full ROM, normal capillary refill. Absent: tenderness, pedal edema, joint swelling, calf tenderness Neurological exam: Present: alert, oriented X3 Psychiatric exam: Present: normal affect, normal mood Skin exam: Present: warm, dry, intact, normal color. Absent: rash Course Vital Signs 08/01/17 08/01/17 08/01/17 17:26 19:05 19:17 Temperature 98.9 F Pulse Rate 94 92 94 Respiratory 20 Rate Blood Pressure 166/79 O2 Sat by Pulse 93 L Oximetry - Reevaluation(s) Reevaluation #1: 08/01/17 19:10 This time patient does meet sepsis criteria. At this time antibiotics were ordered. Medical Decision Making - Medical Decision Making 47-year-old male presents emergency department with a chief complaint of cough. At this time patient does appear to have left lower lobe pneumonia as well as meet sepsis criteria. Levaquin was started for the patient. As well as vanco. We will start continued breathing treatments for the patient. We will admit to Dr. de oliveira. Patient family on agreement this plan. All questions have been answered. They will be admitted. - Lab Data Result diagrams: 08/01/17 18:35 08/01/17 18:35 Lab Results 08/01/17 08/01/17 08/01/17 Range/Units 18:35 18:35 18:35 WBC 12.1 H (3.8-10.6) k/uL RBC 4.18 L (4.30-5.90) m/uL Hgb 14.3 D (13.0-17.5) gm/dL Hct 43.0 (39.0-53.0) % MCV 102.9 H (80.0-100.0) fL MCH 34.1 (25.0-35.0) pg MCHC 33.1 (31.0-37.0) g/dL RDW 15.3 (11.5-15.5) % Plt Count 108 L (150-450) k/uL Neutrophils % 85 % Lymphocytes % 8 % Monocytes % 5 % Eosinophils % 1 % Basophils % 1 % Neutrophils # 10.3 H (1.3-7.7) k/uL Lymphocytes # 0.9 L (1.0-4.8) k/uL Monocytes # 0.6 (0-1.0) k/uL Eosinophils # 0.1 (0-0.7) k/uL Basophils # 0.1 (0-0.2) k/uL Macrocytosis Slight PT (9.0-12.0) sec INR (<1.2) APTT (22.0-30.0) sec Sodium 136 L (137-145) mmol/L Potassium 4.3 (3.5-5.1) mmol/L Chloride 93 L (98-107) mmol/L Carbon Dioxide 32 H (22-30) mmol/L Anion Gap 11 mmol/L BUN 24 H (9-20) mg/dL Creatinine 3.87 H (0.66-1.25) mg/dL Est GFR (MDRD) Af Amer 20 (>60 ml/min/1.73 sqM) Est GFR (MDRD) Non-Af 17 (>60 ml/min/1.73 sqM) Glucose 216 H (74-99) mg/dL POC Glucose (mg/dL) (75-99) mg/dL POC Glu Auto Engine Mechanic ID Plasma Lactic Acid Kash 2.3 H* (0.7-2.0) mmol/L Calcium 9.4 (8.4-10.2) mg/dL Total Bilirubin 0.8 (0.2-1.3) mg/dL AST 38 (17-59) U/L ALT 30 (21-72) U/L Alkaline Phosphatase 84 (38-126) U/L Total Protein 6.8 (6.3-8.2) g/dL Albumin 3.7 (3.5-5.0) g/dL Amylase <30 L (30-110) U/L Lipase 14 L (23-300) U/L Urine Color Urine Appearance (Clear) Urine pH (5.0-8.0) Ur Specific Hannah (1.001-1.035) Urine Protein (Negative) Urine Glucose (UA) (Negative) Urine Ketones (Negative) Urine Blood (Negative) Urine Nitrite (Negative) Urine Bilirubin (Negative) Urine Urobilinogen (<2.0) mg/dL Ur Leukocyte Esterase (Negative) Urine RBC (0-5) /hpf Urine WBC (0-5) /hpf Ur Squamous Epith Cells (0-4) /hpf Urine Bacteria (None) /hpf Hyaline Casts (0-2) /lpf Urine Mucus (None) /hpf Urine Yeast (Budding) (None) /hpf Acetone, Qual Negative (Negative) Influenza Type A RNA (Not Detectd) Influenza Type B (PCR) (Not Detectd) 08/01/17 08/01/17 08/01/17 Range/Units 18:35 18:40 18:43 WBC (3.8-10.6) k/uL RBC (4.30-5.90) m/uL Hgb (13.0-17.5) gm/dL Hct (39.0-53.0) % MCV (80.0-100.0) fL MCH (25.0-35.0) pg MCHC (31.0-37.0) g/dL RDW (11.5-15.5) % Plt Count (150-450) k/uL Neutrophils % % Lymphocytes % % Monocytes % % Eosinophils % % Basophils % % Neutrophils # (1.3-7.7) k/uL Lymphocytes # (1.0-4.8) k/uL Monocytes # (0-1.0) k/uL Eosinophils # (0-0.7) k/uL Basophils # (0-0.2) k/uL Macrocytosis PT 10.7 (9.0-12.0) sec INR 1.1 (<1.2) APTT 28.6 (22.0-30.0) sec Sodium (137-145) mmol/L Potassium (3.5-5.1) mmol/L Chloride (98-107) mmol/L Carbon Dioxide (22-30) mmol/L Anion Gap mmol/L BUN (9-20) mg/dL Creatinine (0.66-1.25) mg/dL Est GFR (MDRD) Af Amer (>60 ml/min/1.73 sqM) Est GFR (MDRD) Non-Af (>60 ml/min/1.73 sqM) Glucose (74-99) mg/dL POC Glucose (mg/dL) 203 H (75-99) mg/dL POC Glu Auto Engine Mechanic ID Danyelle, Munir Plasma Lactic Acid Kash (0.7-2.0) mmol/L Calcium (8.4-10.2) mg/dL Total Bilirubin (0.2-1.3) mg/dL AST (17-59) U/L ALT (21-72) U/L Alkaline Phosphatase (38-126) U/L Total Protein (6.3-8.2) g/dL Albumin (3.5-5.0) g/dL Amylase (30-110) U/L Lipase (23-300) U/L Urine Color Urine Appearance (Clear) Urine pH (5.0-8.0) Ur Specific Hannah (1.001-1.035) Urine Protein (Negative) Urine Glucose (UA) (Negative) Urine Ketones (Negative) Urine Blood (Negative) Urine Nitrite (Negative) Urine Bilirubin (Negative) Urine Urobilinogen (<2.0) mg/dL Ur Leukocyte Esterase (Negative) Urine RBC (0-5) /hpf Urine WBC (0-5) /hpf Ur Squamous Epith Cells (0-4) /hpf Urine Bacteria (None) /hpf Hyaline Casts (0-2) /lpf Urine Mucus (None) /hpf Urine Yeast (Budding) (None) /hpf Acetone, Qual (Negative) Influenza Type A RNA Not Detected (Not Detectd) Influenza Type B (PCR) Not Detected (Not Detectd) 08/01/17 Range/Units 18:50 WBC (3.8-10.6) k/uL RBC (4.30-5.90) m/uL Hgb (13.0-17.5) gm/dL Hct (39.0-53.0) % MCV (80.0-100.0) fL MCH (25.0-35.0) pg MCHC (31.0-37.0) g/dL RDW (11.5-15.5) % Plt Count (150-450) k/uL Neutrophils % % Lymphocytes % % Monocytes % % Eosinophils % % Basophils % % Neutrophils # (1.3-7.7) k/uL Lymphocytes # (1.0-4.8) k/uL Monocytes # (0-1.0) k/uL Eosinophils # (0-0.7) k/uL Basophils # (0-0.2) k/uL Macrocytosis PT (9.0-12.0) sec INR (<1.2) APTT (22.0-30.0) sec Sodium (137-145) mmol/L Potassium (3.5-5.1) mmol/L Chloride (98-107) mmol/L Carbon Dioxide (22-30) mmol/L Anion Gap mmol/L BUN (9-20) mg/dL Creatinine (0.66-1.25) mg/dL Est GFR (MDRD) Af Amer (>60 ml/min/1.73 sqM) Est GFR (MDRD) Non-Af (>60 ml/min/1.73 sqM) Glucose (74-99) mg/dL POC Glucose (mg/dL) (75-99) mg/dL POC Glu Auto Engine Mechanic ID Plasma Lactic Acid Kash (0.7-2.0) mmol/L Calcium (8.4-10.2) mg/dL Total Bilirubin (0.2-1.3) mg/dL AST (17-59) U/L ALT (21-72) U/L Alkaline Phosphatase (38-126) U/L Total Protein (6.3-8.2) g/dL Albumin (3.5-5.0) g/dL Amylase (30-110) U/L Lipase (23-300) U/L Urine Color Yellow Urine Appearance Cloudy (Clear) Urine pH 6.5 (5.0-8.0) Ur Specific Hannah 1.013 (1.001-1.035) Urine Protein 3+ H (Negative) Urine Glucose (UA) 4+ H (Negative) Urine Ketones Negative (Negative) Urine Blood Moderate H (Negative) Urine Nitrite Negative (Negative) Urine Bilirubin Negative (Negative) Urine Urobilinogen <2.0 (<2.0) mg/dL Ur Leukocyte Esterase Moderate H (Negative) Urine RBC 9 H (0-5) /hpf Urine WBC 81 H (0-5) /hpf Ur Squamous Epith Cells 1 (0-4) /hpf Urine Bacteria Moderate H (None) /hpf Hyaline Casts 22 H (0-2) /lpf Urine Mucus Rare H (None) /hpf Urine Yeast (Budding) Moderate H (None) /hpf Acetone, Qual (Negative) Influenza Type A RNA (Not Detectd) Influenza Type B (PCR) (Not Detectd) - Radiology Data Radiology results: report reviewed, image reviewed Disposition Clinical Impression: Hyperglycemia due to type 1 diabetes mellitus, Down's syndrome, Left lower lobe pneumonia, Sepsis, UTI (urinary tract infection) Disposition: ADMITTED IP TO THIS [facility] Condition: Stable Referrals: Hawk Cazares MD [Primary Care Provider] - 1-2 days Decision Date: 08/01/17 Decision Time: 19:49
[2017-08-01 19:02] LABS: Basophils # (A) 0.1 k/uL (0-0.2); Basophils % (A) 1 %; Eosinophils # (A) 0.1 k/uL (0-0.7); Eosinophils % (A) 1 %; Lymphocytes # (A) 0.9 k/uL (1.0-4.8); Lymphocytes % (A) 8 %; MCH 34.1 pg (25.0-35.0); MCHC 33.1 g/dL (31.0-37.0); MCV 102.9 fL (80.0-100.0); Macrocytosis Slight; Mean Platelet Volume 8.8; Monocytes # (A) 0.6 k/uL (0-1.0); Monocytes % (A) 5 %; Neutrophils # (A) 10.3 k/uL (1.3-7.7); Neutrophils % (A) 85 %; Platelet Count 108 k/uL (150-450); RBC 4.18 m/uL (4.30-5.90); RDW 15.3 % (11.5-15.5); WBC 12.1 k/uL (3.8-10.6)
[2017-08-01 19:03] LABS: HGB 14.3 gm/dL (13.0-17.5)
[2017-08-01 19:09] LABS: Appearance,Urine Cloudy (Clear); Bacteria,Urine Moderate /hpf; Bilirubin,Urine Negative (Negative); Blood,Urine Moderate (Negative); Budding Yeast,Urine Moderate /hpf; Color,Urine Yellow; Glucose,Urine (UA) 4+ (Negative); Hyaline Casts,Urine 22 /lpf (0-2); Ketones,Urine Negative (Negative); Leukocyte Esterase,Urine Moderate (Negative); Mucus,Urine Rare /hpf; Nitrite,Urine Negative (Negative); PH, Urine 6.5 (5.0-8.0); Protein,Urine 3+ (Negative); RBC,Urine 9 /hpf (0-5); Specific Gravity,Urine 1.013 (1.001-1.035); Squamous Epithelial Cell,Urine 1 /hpf (0-4); Urobilinogen,Urine <2.0 mg/dL (<2.0); WBC,Urine 81 /hpf (0-5)
[2017-08-01 19:10] LABS: ALT 30 U/L (21-72); AST 38 U/L (17-59); Albumin 3.7 g/dL (3.5-5.0); Alkaline Phosphatase 84 U/L (38-126); Amylase <30 U/L (30-110); Anion Gap 11 mmol/L; Blood Urea Nitrogen 24 mg/dL (9-20); Calcium 9.4 mg/dL (8.4-10.2); Carbon Dioxide 32 mmol/L (22-30); Chloride 93 mmol/L (98-107); Glucose 216 mg/dL (74-99); Lipase 14 U/L (23-300); Potassium 4.3 mmol/L (3.5-5.1); Sodium 136 mmol/L (137-145); Total Bilirubin 0.8 mg/dL (0.2-1.3); Total Protein 6.8 g/dL (6.3-8.2)
[2017-08-01] MEDS ORDERED: LEVOFLOXACIN 750MG-D5W PMX 750 MG in DEXTROSE/WATER 1 150ML.BAG IVPB STA (19:10)
[2017-08-01 19:39] LABS: INR 1.1 (<1.2); Partial Thromboplastin Time 28.6 sec (22.0-30.0); Prothrombin Time 10.7 sec (9.0-12.0)
[2017-08-01] MEDS ORDERED: PNEUMONIA PROTOCOL UTILIZED 1 EACH MISC PO PRN (19:40)
--- NOTE | 2017-08-01 19:41 | XR ---
EXAMINATION TYPE: XR chest 2V DATE OF EXAM: 08/01/2017 COMPARISON: Chest x-ray December 20, 2016 HISTORY: Cough and congestion. TECHNIQUE: Frontal and lateral views of the chest are obtained. FINDINGS: There is persistent cardiomegaly. The osseous structures are intact. There is new dense left basilar consolidation on frontal view silhouetting left heart border and hemidiaphragm less well seen on lateral view. No large pleural effusion is present on lateral view. No pneumothorax is seen bilaterally. . IMPRESSION: Cardiomegaly with new prominent lingular and left lower lobe infiltrates.
[2017-08-01] MEDS ORDERED: VANCOMYCIN IV PER PHARMACY 1 EACH MISC MISCELLANE PRN (19:43)
[2017-08-01] MEDS ORDERED: SODIUM CHLORIDE 0.9% 1,000 ML IV SCH (19:45)
[2017-08-01] MEDS ORDERED: VANCOMYCIN 1,500 MG in SODIUM CHLORIDE 0.9% 250 ML IVPB STA (19:49)
[2017-08-01 22:16] LABS: Glucose,Whole Blood 260 mg/dL (75-99)
[2017-08-01] MEDS: LACTULOSE 20 GM/30 ML CUP PO SCH (22:52)
[2017-08-01] MEDS: ATORVASTATIN 10 MG TAB PO SCH (22:52)
[2017-08-01] MEDS: GABAPENTIN 100 MG CAP PO SCH (22:52)
[2017-08-01] MEDS: LORATADINE 10 MG TAB PO SCH (22:53)
[2017-08-01] MEDS: INSULIN ASPART 100 UNIT/ML 1 ML 10 ML VIAL SQ SCH (22:56)
[2017-08-02] MEDS: ATORVASTATIN 10 MG TAB PO SCH ×2 (01:25→20:09)
[2017-08-02] MEDS: LORATADINE 10 MG TAB PO SCH ×2 (01:25→20:09)
[2017-08-02 07:44] LABS: Glucose,Whole Blood 172 mg/dL (75-99)
[2017-08-02] MEDS: INSULIN ASPART 100 UNIT/ML 1 ML 10 ML VIAL SQ SCH ×4 (08:28→21:02)
[2017-08-02] MEDS: LACTULOSE 20 GM/30 ML CUP PO SCH ×2 (09:27→20:09)
[2017-08-02] MEDS: LEVOTHYROXINE 88 MCG TAB PO SCH (09:27)
[2017-08-02] MEDS: FAMOTIDINE 20 MG TAB PO SCH (09:27)
[2017-08-02] MEDS: TAMSULOSIN 0.4 MG CAP.ER.24H PO SCH (09:27)
[2017-08-02] MEDS: METOCLOPRAMIDE 5 MG TAB PO SCH ×2 (09:27→17:35)
[2017-08-02] MEDS: FERROUS SULFATE 325 MG TAB PO SCH (09:27)
[2017-08-02] MEDS: SODIUM POLYSTYRENE SULFONATE 15 GM/60 ML BOTTLE PO SCH (09:28)
--- NOTE | 2017-08-02 09:33 | XR ---
EXAMINATION TYPE: XR chest 2V DATE OF EXAM: 08/02/2017 COMPARISON: 08/13/2017 INDICATION: Pneumonia TECHNIQUE: Frontal and lateral views of the chest are obtained. FINDINGS: The heart size is mildly prominent. The pulmonary vasculature is prominent. There is diffuse increased lung markings greater on the left perihilar and left lower lobe.. IMPRESSION: 1. Left lower lobe pneumonia.
[2017-08-02 11:01] LABS: Hemoglobin A1C 7.8 % (4.0-6.0)
[2017-08-02] MEDS: IPRATROPIUM-ALBUTEROL 3 ML NEB INHALATION PRN ×2 (11:10→16:34)
[2017-08-02] MEDS ORDERED: VANCOMYCIN 1,250 MG in SODIUM CHLORIDE 0.9% 250 ML IVPB ONE (12:00)
[2017-08-02] MEDS: B COMPLEX-VIT C-VIT E-ZINC 1 EACH TAB PO SCH ×2 (12:33→12:35)
[2017-08-02 12:41] LABS: Glucose,Whole Blood 298 mg/dL (75-99)
[2017-08-02 13:23] VITALS: BMI 28.9
--- NOTE | 2017-08-02 15:13 | CONS ---
CONSULTATION REASON FOR CONSULT: End-stage renal disease. HISTORY OF PRESENT ILLNESS: Patient is a 47-year-old male with history of Down's syndrome and end-stage renal disease, on hemodialysis on a Saturday, , Saturday schedule. Patient was admitted to the hospital with a history of increasing cough over the past week. He did not have a fever at the dialysis unit; however, he had not been feeling well and was ordered to have a chest x-ray done as outpatient. It is difficult to obtain history from the patient. However, it appears that he deteriorated after dialysis yesterday and was brought into the hospital for further evaluation. Chest x-ray did show evidence of new left lower lobe infiltrate and patient is maintained on antibiotics. He has not had a fever post hospitalization. Patient has a left arm AV fistula. PAST MEDICAL HISTORY: End-stage renal disease, on hemodialysis on a Saturday, , Saturday schedule. Down's syndrome. Anemia of chronic disease, CKD, mineral bone disorder, diabetes, dyslipidemia, pulmonary hypertension, gastroesophageal reflux disease, hypothyroidism. PAST SURGICAL HISTORY: AV fistula, ear surgery. SOCIAL HISTORY: Negative for smoking, drug abuse or alcohol abuse. Patient has a caregiver. MEDICATIONS: At home include insulin, Zocor, lactulose, Pepcid, vitamin D2, iron, Synthroid, Claritin, Reglan, Flomax, vitamin B, Neurontin, Renvela. ALLERGIES: None. PHYSICAL EXAMINATION: Patient is currently comfortable, awake. He is not in any acute distress. Blood pressure is 125/65, heart rate 101 per minute. He is afebrile. Examination of the heart, S1, S2. Examination of the lungs, bilateral breath sounds are heard. Abdomen is soft, nontender. Examination of the lower extremities shows no evidence of edema. BOTTLING ROOM WORKER exam shows patient moving all 4 extremities. He does have features of Down's syndrome and he is not talking much, but he does smile and answers to simple questions. LABS: Show sodium 136, potassium 4.3, serum creatinine 3.87, hemoglobin 14.3 g/dL. ASSESSMENT: 1. End-stage renal disease on hemodialysis on a Saturday, , Saturday schedule via left arm AV fistula. 2. Left lower lobe pneumonia, maintained on Levaquin. 3. Down's syndrome. 4. Hypothyroidism. 5. Pulmonary hypertension. 6. Chronic kidney disease mineral bone disorder, maintained on Renvela. 7. Type 2 diabetes, maintained on insulin. 8. Dyslipidemia. 9. Possible urinary tract infection. PLAN: Follow up on urine cultures. Will plan for hemodialysis in a.m. and repeat labs. Thank you for this consultation. Will continue to follow the patient during his hospitalization. MMODL / IJN: [id number] /
[2017-08-02 17:03] LABS: Glucose,Whole Blood 222 mg/dL (75-99)
[2017-08-02] MEDS: cefTRIAXone IN SWFI 1,000 MG/10 ML SYRINGE IVP SCH (17:35)
[2017-08-02] MEDS: SEVELAMER 800 MG TAB PO SCH (17:35)
--- NOTE | 2017-08-02 18:40 | HP ---
HISTORY AND PHYSICAL DATE OF ADMISSION: 08/01/17 PRESENTING COMPLAINT: Fever. HISTORY OF PRESENTING COMPLAINT: This is a 47-year-old patient of visiting physician Dr. Cazares, resident of a [facility]. The patient's chronic stable medical conditions include diabetes mellitus type 2, GERD, hypertension, hyperlipidemia, chronic kidney disease, hypothyroid, Down syndrome, able to write name, occasionally can say a few words. Able to walk about on his own. He is on a mechanical soft diet. Dialysis Saturday, and Saturday. The patient lives at [facility]. The patient was sent in for a fever, unable to note patient had any other symptoms because the patient really does not talk much. Chest x-ray did show infiltrate and urine did come back infected. The patient is simply lying in bed, looking at me when I try to talk to him. Started on the patient did get a dose of Levaquin in the ER. REVIEW OF SYSTEMS: Cannot obtain. PAST MEDICAL HISTORY: Diabetes mellitus type 2, GERD, hyperlipidemia, hypertension, end-stage kidney disease, hypothyroid, Down syndrome, hemodialysis Saturday, , and Saturday. PAST SURGICAL HISTORY: Surgical history ear surgery, some tooth extracted, bilateral eye surgery for cataract, left arm port for dialysis. SOCIAL HISTORY: Lives at [facility] telephone #[phone]. No smoking. No alcohol. FAMILY HISTORY: Patient cannot state. HOME MEDICATIONS: 1. Lispro 7 units units 3 times a day. 2. Vitamin B complex 1 capsule p.o. daily. 3. Kayexalate 15 g daily. 4. Lactulose 10 grams p.o. b.i.d. 5. Iron 40 mg p.o. daily. 6. Vitamin D2 50,000 units p.o. Q 14 days. 7. Flomax 0.4 mg p.o. daily. 8. Claritin 10 mg p.o. q.h.s. 9. Pepcid 20 mg p.o. daily. 10.Reglan 5 mg p.o. b.i.d. 11.Insulin Lantus 25 units subcu q.h.s. 12.Luvox 150 mg p.o. b.i.d. 13.Renvela 800 mg p.o. daily. 14.Neurontin 100 mg q.h.s. 15.Zocor 10 mg q.h.s. 16.Synthroid 125 mcg a day. ALLERGIES: None. PHYSICAL EXAMINATION: Vital signs on presentation temperature 98.9, pulse 104, respiratory 20, blood pressure 129/67, pulse ox 98% on room air. General appearance: Average build, lying in bed, awake tired-appearing. Eyes: Pupils equal. Conjunctivae normal. HEENT: External appearance of nose and ears normal. Oral cavity dry mucous membranes. Neck JVD not raised. Mass not palpable. RESPIRATORY: Effort. LUNGS: Diminished breath sounds. Cardiovascular 1st and second sounds. No edema. ABDOMEN: Soft, nontender. Liver and spleen not palpable. Lymphatic no lymph nodes palpable in neck or axillae. Psychiatry: Patient not really talking. Unable to assess. NEUROLOGICAL: Pupils equal. No facial asymmetry. Is moving all 4 limbs. INVESTIGATIONS: White count 12.1, hemoglobin 14.3, platelets 108, potassium 4.3, BUN 24, creatinine 3.87. UA positive for leuko esterase WBC. Serum acetone negative. Chest x-ray showing influenza. ASSESSMENT: 1. Pneumonia suspect gram-negative organism, present on admission. 2. Acute urinary tract infection present on admission. 3. Diabetes mellitus type 2, chronically on insulin. 4. Gastroesophageal reflux disease. 5. Hyperlipidemia. 6. Essential hypertension. 7. End-stage kidney disease on hemodialysis Saturday, , and Saturday. 8. Down syndrome. PLAN: Patient is put on IV ceftriaxone. Hemodialysis to be continued. Urine cultures are pending. Nephrology was consulted for dialysis. MMODL / IJN: [id number] /
[2017-08-02] MEDS: GABAPENTIN 100 MG CAP PO SCH (20:09)
[2017-08-02 20:57] LABS: Glucose,Whole Blood 284 mg/dL (75-99)
[2017-08-03] MEDS: LEVOTHYROXINE 88 MCG TAB PO SCH (06:27)
[2017-08-03] MEDS: INSULIN ASPART 100 UNIT/ML 1 ML 10 ML VIAL SQ SCH ×4 (07:29→21:28)
[2017-08-03] MEDS: SODIUM POLYSTYRENE SULFONATE 15 GM/60 ML BOTTLE PO SCH ×2 (07:30→07:37)
[2017-08-03] MEDS: LACTULOSE 20 GM/30 ML CUP PO SCH ×3 (07:30→22:44)
[2017-08-03] MEDS: METOCLOPRAMIDE 5 MG TAB PO SCH ×2 (07:31→17:47)
[2017-08-03] MEDS: FAMOTIDINE 20 MG TAB PO SCH (07:31)
[2017-08-03] MEDS: FERROUS SULFATE 325 MG TAB PO SCH (07:31)
[2017-08-03] MEDS: TAMSULOSIN 0.4 MG CAP.ER.24H PO SCH (07:31)
[2017-08-03 07:41] LABS: Glucose,Whole Blood 337 mg/dL (75-99)
[2017-08-03] MEDS ORDERED: LEVOFLOXACIN 500 MG TAB PO SCH (09:00)
[2017-08-03] MEDS: cefTRIAXone IN SWFI 1,000 MG/10 ML SYRINGE IVP SCH (10:43)
[2017-08-03 12:34] LABS: Glucose,Whole Blood 344 mg/dL (75-99)
[2017-08-03] MEDS: B COMPLEX-VIT C-VIT E-ZINC 1 EACH TAB PO SCH (13:12)
--- NOTE | 2017-08-03 15:20 | P.PN ---
Subjective Progress Note Date: 08/03/17 Principal diagnosis: This is a 47-year-old male seen in consultation because of ESRD and pneumonia. Patient is known with Down syndrome He was seen on dialysis. He is stable. Ultrafiltration goal is 1 L or less as tolerated. He is not eating well per the nursing staff. Other than this no other new problems no nausea vomiting diarrhea abdominal pain His vital signs are unremarkable Objective - Vital Signs Vital signs: Vital Signs Temp 98.7 F 08/03/17 07:00 Pulse 87 08/03/17 07:00 Resp 18 08/03/17 07:00 BP 176/81 08/03/17 07:00 Pulse Ox 93 L 08/03/17 07:00 Intake & Output 08/02/17 08/03/17 08/03/17 18:59 06:59 18:59 Intake Total 440 400 360 Balance 440 400 360 Weight 69.4 kg Intake: Oral 440 400 360 Other: Voiding Method Toilet Toilet # Voids 2 2 # Bowel Movements 0 On examination awake alert follows commands but is unable to give any reasonable reliable history A chin exam no JVP neck is supple no facial asymmetry Lungs are clear to auscultation and percussion good air entry bilaterally Heart sounds are unremarkable no murmur rub gallop Abdomen soft nontender Extremity exam was no edema Neurologically awake alert but unable to give any history. Follows commands. Moves all his limbs. - Labs CBC & Chem 7: 08/01/17 18:35 08/01/17 18:35 Labs: Abnormal Lab Results - Last 24 Hours (Table) 08/02/17 08/02/17 08/03/17 Range/Units 17:01 20:48 07:02 POC Glucose (mg/dL) 222 H 284 H 337 H (75-99) mg/dL 08/03/17 Range/Units 12:31 POC Glucose (mg/dL) 344 H (75-99) mg/dL Microbiology - Last 24 Hours (Table) 08/01/17 18:50 Urine Culture - Final Urine,Voided 08/01/17 18:35 Blood Culture - Preliminary Blood No Growth after 24 hours Assessment and Plan Assessment: Impression. 1. ESRD on dialysis Saturday stable currently on dialysis. 2. Admitted with left lower lobe pneumonia stable. 3 Down syndrome 4 anemia controlled edema remains 14.3 dated 08/01/2017 Recommendation. Maintain same medications otherwise no changes encouraged by mouth intake check calcium phosphorus albumin with next dialysis
--- NOTE | 2017-08-03 17:07 | P.PN ---
Progress Note - Text Progress Note Date: 08/03/17 DATE OF SERVICE: 08/03/2017 PRESENTING COMPLAINT: Fever HISTORY OF PRESENT ILLNESS: 47-year-old male resident of a custodial([place]) with Down syndrome, hemodialysis dependent brought in for fever unable to determine if other symptoms present patient doesn't really talk much. Chest x-ray revealed infiltrate and urine was infected. Admitted for the same. INTERVAL HISTORY: 08/03/2017: Lying in bed, sort of smiling. Afebrile overnight, vital signs stable. Very little communication from the patient, does follow with his eyes. Waved at me as I entered the room. Hemodialysis scheduled for today. Appetite is poor is a one-to-one feed. Up with assistance. Last BM 08/03/2017. REVIEW OF SYSTEMS: Done for constitutional ,cardiovascular, GI, pulmonary with relevant findings as above. CURRENT MEDICATIONS DuoNeb, Lipitor, Rocephin, vitamin D2, famotidine, ferrous sulfate, Luvox, gabapentin, insulin sliding scale, lactulose, loratidine, Reglan, Renvela, Kayexalate, Flomax, multivitamin. PHYSICAL EXAM VITAL SIGNS: Temperature 98.7, pulse 87, respiratory rate 18, blood pressure 176/81, oxygen saturation 93% on room air. GENERAL APPEARANCE: Sitting up in bed, not in distress. HENT: Normocephalic, JVD not raised. Mass not palpable. Oral cavity dry, external appearance of ears and nose normal. EYES:Pupils equal. Conjunctiva normal. RESPIRATORY: Respiratory effort normal. Lungs diminished to auscultation. CARDIOVASCULAR: First and second sounds normal. No edema. ABDOMEN: Soft. Liver and spleen not palpable. No tenderness. No mass palpable. PSYCHIATRY: Unable to evaluate patient does not speak much EXTREMITIES: Left upper arm with AV fistula in place for hemodialysis. Positive for thrill and bruit INVESTIGATIONS: LABS: Accu-Cheks noted ASSESSMENT: -Pneumonia suspect gram-negative organism, present on admission, improving -Acute urinary tract infection present on admission. -Diabetes mellitus type 2, chronically on insulin. -Gastroesophageal reflux disease. -Hyperlipidemia. -Essential hypertension. -End-stage kidney disease on hemodialysis Saturday and Saturday. -Down syndrome. PLAN: Continue IV ceftriaxone, hemodialysis as scheduled per nephrology. Continue one -to-one feeding and diet to be changed to more pured diet. Plan of care discussed at the bedside will follow closely. SUPERVISOR MICROWAVE statement: Patient was seen and examined by nurse practitioner Mere Perez and all elements of the case discussed with attending Dr. Bangura
[2017-08-03 17:19] LABS: Glucose,Whole Blood 169 mg/dL (75-99)
[2017-08-03] MEDS: SEVELAMER 800 MG TAB PO SCH (17:47)
[2017-08-03] MEDS: IPRATROPIUM-ALBUTEROL 3 ML NEB INHALATION PRN (20:18)
[2017-08-03 21:12] LABS: Glucose,Whole Blood 363 mg/dL (75-99)
[2017-08-03 21:12] LABS: Glucose,Whole Blood 392 mg/dL (75-99)
[2017-08-03] MEDS: GABAPENTIN 100 MG CAP PO SCH (21:22)
[2017-08-03] MEDS: ATORVASTATIN 10 MG TAB PO SCH (21:22)
[2017-08-03] MEDS: LORATADINE 10 MG TAB PO SCH (21:22)
[2017-08-03] MEDS ORDERED: INSULIN DETEMIR 100 UNIT/ML 10 ML VIAL SQ SCH (22:15)
--- NOTE | 2017-08-04 00:17 | PN ---
PROGRESS NOTE DATE OF SERVICE: 08/03/17 ATTENDING NOTE: This patient was seen and examined by me. Discussed with nurse practitioner Ms. Perez. This patient with Down syndrome, presented with pneumonia, possible UTI. Doing better. Getting hemodialysis today. PHYSICAL EXAMINATION: Afebrile. Lungs slightly decreased breath sounds. Blood pressure 160/86, pulse ox 94% on room air. Accu-Cheks noted. Urine culture no growth. ASSESSMENT: 1. Pneumonia suspect gram-negative organism with clinical improvement. 2. Acute urinary tract infection. PLAN: Patient overall getting better. Continue ceftriaxone, will DC patient's vancomycin. Hopefully can be discharged tomorrow . Will with Lantus 20 units tonight. MMODL / IJN: [id number] /
[2017-08-04] MEDS: LEVOTHYROXINE 88 MCG TAB PO SCH (06:21)
[2017-08-04] MEDS: METOCLOPRAMIDE 5 MG TAB PO SCH ×2 (06:22→17:45)
[2017-08-04 07:20] LABS: Glucose,Whole Blood 212 mg/dL (75-99)
[2017-08-04] MEDS: INSULIN ASPART 100 UNIT/ML 1 ML 10 ML VIAL SQ SCH ×4 (07:57→21:23)
[2017-08-04] MEDS: CEFUROXIME 250 MG TAB PO SCH ×2 (09:17→20:01)
[2017-08-04] MEDS: SODIUM POLYSTYRENE SULFONATE 15 GM/60 ML BOTTLE PO SCH (09:18)
[2017-08-04] MEDS: FAMOTIDINE 20 MG TAB PO SCH (09:19)
[2017-08-04] MEDS: FERROUS SULFATE 325 MG TAB PO SCH (09:19)
[2017-08-04] MEDS: LACTULOSE 20 GM/30 ML CUP PO SCH ×2 (09:19→20:02)
[2017-08-04] MEDS: TAMSULOSIN 0.4 MG CAP.ER.24H PO SCH (09:20)
[2017-08-04 09:59] LABS: Basophils # (A) 0.1 k/uL (0-0.2); Basophils % (A) 1 %; Eosinophils # (A) 0.3 k/uL (0-0.7); Eosinophils % (A) 4 %; HCT 33.5 % (39.0-53.0); HGB 11.2 gm/dL (13.0-17.5); Lymphocytes # (A) 0.8 k/uL (1.0-4.8); Lymphocytes % (A) 13 %; MCH 34.3 pg (25.0-35.0); MCHC 33.5 g/dL (31.0-37.0); MCV 102.2 fL (80.0-100.0); Macrocytosis Slight; Mean Platelet Volume 9.2; Monocytes # (A) 0.3 k/uL (0-1.0); Monocytes % (A) 5 %; Neutrophils # (A) 4.7 k/uL (1.3-7.7); Neutrophils % (A) 75 %; RBC 3.28 m/uL (4.30-5.90); RDW 15.5 % (11.5-15.5); WBC 6.3 k/uL (3.8-10.6)
[2017-08-04 10:11] LABS: Calcium 8.9 mg/dL (8.4-10.2)
--- NOTE | 2017-08-04 11:15 | P.PN ---
Subjective Progress Note Date: 08/04/17 Principal diagnosis: This is a 47-year-old male seen in consultation because of ESRD and pneumonia. Patient is known with Down syndrome He is unable to give any history. This morning he is very sleepy. The sitter in the room says he ate a good breakfast otherwise he is being doing well. Supposedly didn't sleep well last night. He is on room air His vital signs are unremarkable Objective - Vital Signs Vital signs: Vital Signs Temp 98.7 F 08/04/17 06:39 Pulse 88 08/04/17 08:00 Resp 16 08/04/17 08:00 BP 161/95 08/04/17 06:39 Pulse Ox 92 L 08/04/17 06:39 Intake & Output 08/03/17 08/04/17 08/04/17 18:59 06:59 18:59 Intake Total 360 250 Balance 360 250 Intake: Oral 360 250 Other: Voiding Method Toilet Toilet # Voids 4 1 # Bowel Movements 4 0 On examination sleepy. HEENT exam no JVP neck is supple no facial asymmetry Lungs are clear to auscultation Heart sounds are unremarkable for any murmur rub gallop Abdomen soft nontender nondistended good air entry bilaterally Extremity exam was no edema Neurologically sleepy and difficult to arouse him. - Labs CBC & Chem 7: 08/04/17 09:27 08/04/17 09:27 Labs: Abnormal Lab Results - Last 24 Hours (Table) 08/03/17 08/03/17 08/03/17 Range/Units 12:31 17:13 21:07 RBC (4.30-5.90) m/uL Hgb (13.0-17.5) gm/dL Hct (39.0-53.0) % MCV (80.0-100.0) fL BUN (9-20) mg/dL Creatinine (0.66-1.25) mg/dL Glucose (74-99) mg/dL POC Glucose (mg/dL) 344 H 169 H 363 H (75-99) mg/dL 08/03/17 08/04/17 08/04/17 Range/Units 21:09 07:09 09:27 RBC (4.30-5.90) m/uL Hgb (13.0-17.5) gm/dL Hct (39.0-53.0) % MCV (80.0-100.0) fL BUN 38 H (9-20) mg/dL Creatinine 4.15 H (0.66-1.25) mg/dL Glucose 186 H (74-99) mg/dL POC Glucose (mg/dL) 392 H 212 H (75-99) mg/dL 08/04/17 Range/Units 09:27 RBC 3.28 L (4.30-5.90) m/uL Hgb 11.2 L D (13.0-17.5) gm/dL Hct 33.5 L (39.0-53.0) % MCV 102.2 H (80.0-100.0) fL BUN (9-20) mg/dL Creatinine (0.66-1.25) mg/dL Glucose (74-99) mg/dL POC Glucose (mg/dL) (75-99) mg/dL Microbiology - Last 24 Hours (Table) 08/01/17 18:35 Blood Culture - Preliminary Blood No Growth after 48 hours Assessment and Plan Assessment: Impression. 1. ESRD on dialysis Saturday stable on dialysis. 2. Admitted with left lower lobe pneumonia stable. 3. Down syndrome 4. Anemia hemoglobin 11.2. anemia down from 14.3 on 08/01/2017. No obvious bleeding. 5. Blood pressure is slightly about target at 161/95. Recommendation. With next dialysis will ultrafiltrate more fluid and hopefully blood pressure will improve. Maintain same medications otherwise no changes check calcium phosphorus albumin with next dialysis
[2017-08-04 11:56] LABS: Glucose,Whole Blood 307 mg/dL (75-99)
[2017-08-04 11:56] LABS: Platelet Count 92 k/uL (150-450)
[2017-08-04] MEDS: B COMPLEX-VIT C-VIT E-ZINC 1 EACH TAB PO SCH (13:00)
--- NOTE | 2017-08-04 14:20 | XR ---
EXAMINATION TYPE: XR chest 2V DATE OF EXAM: 08/04/2017 HISTORY: worsening cough, pneumonia. REFERENCE: Previous study dated 08/02/2017. FINDINGS: The heart is enlarged. There is some left basilar airspace disease. This has improved. Ther e is a small left effusion.. IMPRESSION: IMPROVING AERATION, LEFT LUNG BASE.
[2017-08-04 17:05] LABS: Hepatitis B Surface AB- Quant 7.8 mIU/mL
[2017-08-04 17:11] LABS: Glucose,Whole Blood 305 mg/dL (75-99)
[2017-08-04] MEDS: SEVELAMER 800 MG TAB PO SCH (17:45)
--- NOTE | 2017-08-04 19:20 | P.PN ---
Progress Note - Text Progress Note Date: 08/04/17 DATE OF SERVICE: 08/04/2017 PRESENTING COMPLAINT: Fever HISTORY OF PRESENT ILLNESS: 47-year-old male resident of a penitentiary([place]) with Down syndrome, hemodialysis dependent brought in for fever unable to determine if other symptoms present patient doesn't really talk much. Chest x-ray revealed infiltrate and urine was infected. Admitted for the same. INTERVAL HISTORY: 08/04/2017: Sitting up in bed being fed by one of the nurses aides. Did not sleep well, sitter at the bedside. Appetite is good and chewing swallowing and eating without difficulty. Blood pressure is slightly above his norm likely due to need for hemodialysis. Continues not to talk very much does track with his eyes. Vital signs are stable afebrile, antibiotics and hemodialysis continue. Last BM 08/03/2017. 08/03/2017: Lying in bed, sort of smiling. Afebrile overnight, vital signs stable. Very little communication from the patient, does follow with his eyes. Waved at me as I entered the room. Hemodialysis scheduled for today. Appetite is poor is a one-to-one feed. Up with assistance. Last BM 08/03/2017. REVIEW OF SYSTEMS: Done for constitutional ,cardiovascular, GI, pulmonary with relevant findings as above. CURRENT MEDICATIONS DuoNeb, Lipitor, Rocephin, vitamin D2, famotidine, ferrous sulfate, Luvox, gabapentin, insulin sliding scale, lactulose, loratidine, Reglan, Renvela, Kayexalate, Flomax, multivitamin. PHYSICAL EXAM VITAL SIGNS: Temperature 98.7, pulse 88, respiratory rate 16, blood pressure 161/95, oxygen saturation 92% on room air. GENERAL APPEARANCE: Sitting up in bed, not in distress. HENT: Normocephalic, JVD not raised. Mass not palpable. Oral cavity dry, external appearance of ears and nose normal. EYES:Pupils equal. Conjunctiva normal. RESPIRATORY: Respiratory effort normal. Lungs diminished to auscultation. CARDIOVASCULAR: First and second sounds normal. No edema. ABDOMEN: Soft. Liver and spleen not palpable. No tenderness. No mass palpable. PSYCHIATRY: Unable to evaluate patient does not speak much EXTREMITIES: Left upper arm with AV fistula in place for hemodialysis. Positive for thrill and bruit INVESTIGATIONS: LABS: Hemoglobin 11.2, BUN 38, creatinine 4.15, Accu-Cheks noted. Chest x-ray: Improving aeration left lung base. ASSESSMENT: -Pneumonia suspect gram-negative organism, present on admission, improving -Acute urinary tract infection present on admission. -Diabetes mellitus type 2, chronically on insulin. -Gastroesophageal reflux disease. -Hyperlipidemia. -Essential hypertension. -End-stage kidney disease on hemodialysis Saturday and Saturday. -Down syndrome. PLAN: Continue IV ceftriaxone, hemodialysis as scheduled per nephrology. Blood pressure is slightly above his norm plans for additional ultrafiltration in the hopes of blood pressure will improve. Plan of care discussed at the bedside will follow closely. PROCEDURES NURSE statement: Patient was seen and examined by nurse practitioner Mere Perez and all elements of the case discussed with attending Dr. Bangura
[2017-08-04] MEDS: LORATADINE 10 MG TAB PO SCH (20:01)
[2017-08-04] MEDS: GABAPENTIN 100 MG CAP PO SCH (20:01)
[2017-08-04] MEDS: ATORVASTATIN 10 MG TAB PO SCH (20:01)
[2017-08-04] MEDS ORDERED: INSULIN DETEMIR 100 UNIT/ML 10 ML VIAL SQ SCH (21:00)
[2017-08-04 21:03] LABS: Glucose,Whole Blood 298 mg/dL (75-99)
--- NOTE | 2017-08-04 21:48 | PN ---
PROGRESS NOTE DATE OF SERVICE: August 04, 2017. ATTENDING NOTE: Patient seen and examined by me. I discussed with nurse practitioner, Homa Ana. Patient is doing better. Tolerating a diet. On examination some crackles on the lungs. PHYSICAL EXAMINATION: Afebrile, pulse 87. Respiratory rate 16. Pulse ox 90% on room air. INVESTIGATIONS: White count 6.3. Accu-Cheks noted at 212, 307, 305. ASSESSMENT: 1. Pneumonia could be aspiration pneumonia. The patient occasionally chokes. 2. Acute urinary tract infection. 3. Diabetes mellitus type 2, chronically on insulin, uncontrolled. PLAN: I told the nurse to get the patient a more chopped diet. We will increase patient's the Lantus to 24 units at night and also will add to the schedule NovoLog 4 units with each meal. May be another 24 hours in the hospital and maintain aspiration precautions. All feeding supervised. HOLLANDL / MARISELAN: [id number] /
[2017-08-05] MEDS: METOCLOPRAMIDE 5 MG TAB PO SCH ×2 (06:32→17:28)
[2017-08-05] MEDS: LEVOTHYROXINE 88 MCG TAB PO SCH (06:32)
[2017-08-05 07:25] LABS: Glucose,Whole Blood 164 mg/dL (75-99)
[2017-08-05] MEDS: INSULIN ASPART 100 UNIT/ML 1 ML 10 ML VIAL SQ SCH ×7 (07:53→21:05)
[2017-08-05] MEDS: LACTULOSE 20 GM/30 ML CUP PO SCH ×2 (07:54→21:05)
[2017-08-05] MEDS: FERROUS SULFATE 325 MG TAB PO SCH (07:55)
[2017-08-05] MEDS: CEFUROXIME 250 MG TAB PO SCH (07:55)
[2017-08-05] MEDS: FAMOTIDINE 20 MG TAB PO SCH (07:55)
[2017-08-05] MEDS: TAMSULOSIN 0.4 MG CAP.ER.24H PO SCH (07:55)
[2017-08-05] MEDS: SODIUM POLYSTYRENE SULFONATE 15 GM/60 ML BOTTLE PO SCH (07:56)
--- NOTE | 2017-08-05 08:30 | CDI ---
Last Revision, May 2017 Documentation Clarification Form Date: 08/05/2017 8:18:00 AM From: Alisia Roldan RN Admit Date: 08/01/2017 7:38:00 PM Patient Name: Jak Blood Visit Number: [id number] ATTENTION: The Clinical Documentation Specialists (CDI) and [facility] Coding Staff appreciate your assistance in clarifying documentation. Please respond to the clarification below the line at the bottom and electronically sign. The CDI & [facility] Coding staff will review the response and follow-up if needed. Please note: Queries are made part of the Legal Health Record. If you have any questions, please contact the author of this message via ITS. Dr. Benny Bangura, Documentation and location in medical record included "Sepsis" in the ED note. History/Risk Factors: DM, HTN, end stage kidney disease, hypothyroid, down syndrome, from long term Clinical Indicators: WBC on admission: 12.1 Lactic acid on admission: 2.3 Blood cultures: final no growth Vitals signs on admission: T 98.9, P 94, R 20, 166/79, 93% RA Urine Culture negative. Urinalysis Leukocyte esterase Moderate, WBC 81, bacteria Moderate Antibiotics: IV Rocephin, PO Ceftin, PO Levaquin, Pneumonia Protocol IV Bolus: x1 In your professional opinion, please clarify if these findings signify one of the following conditions, whether the condition is POA, and cause, if known: Sepsis ruled out Sepsis ruled in Other, please specify Unable to determine Present on Admission: Yes No Please continue to document in your progress notes and discharge summary in order to capture severity of illness and risk of mortality. Include clinical findings that support your diagnosis. MTDD
[2017-08-05] MEDS: IPRATROPIUM-ALBUTEROL 3 ML NEB INHALATION PRN ×2 (09:31→12:32)
[2017-08-05 12:27] LABS: Glucose,Whole Blood 347 mg/dL (75-99)
[2017-08-05] MEDS: B COMPLEX-VIT C-VIT E-ZINC 1 EACH TAB PO SCH (12:40)
[2017-08-05 16:58] LABS: Glucose,Whole Blood 348 mg/dL (75-99)
[2017-08-05] MEDS: SEVELAMER 800 MG TAB PO SCH (17:29)
--- NOTE | 2017-08-05 18:35 | P.PN ---
Progress Note - Text Progress Note Date: 08/05/17 DATE OF SERVICE: 08/05/2017 PRESENTING COMPLAINT: Fever HISTORY OF PRESENT ILLNESS: 47-year-old male resident of a alf([place]) with Down syndrome, hemodialysis dependent brought in for fever unable to determine if other symptoms present patient doesn't really talk much. Chest x-ray revealed infiltrate and urine was infected. Admitted for the same. INTERVAL HISTORY: 08/05/2017: Lying in bed resting quietly. Has had a couple of difficult nights hence he sleeping. Opens his eyes to stimulus and goes right back to sleep. Feels warm to touch. The low-grade fever overnight 100.1, afebrile since that time. Breathing is improved coughing less no sputum production. 08/04/2017: Sitting up in bed being fed by one of the nurses aides. Did not sleep well, sitter at the bedside. Appetite is good and chewing swallowing and eating without difficulty. Blood pressure is slightly above his norm likely due to need for hemodialysis. Has pulled out multiple IVs and is a very difficult IV start. Switched IV antibiotics to oral. Continues not to talk very much does track with his eyes. Vital signs are stable afebrile, antibiotics and hemodialysis continue. Last BM 08/03/2017. 08/03/2017: Lying in bed, sort of smiling. Afebrile overnight, vital signs stable. Very little communication from the patient, does follow with his eyes. Waved at me as I entered the room. Hemodialysis scheduled for today. Appetite is poor is a one-to-one feed. Up with assistance. Last BM 08/03/2017. REVIEW OF SYSTEMS: Done for constitutional ,cardiovascular, GI, pulmonary with relevant findings as above. CURRENT MEDICATIONS DuoNeb, Lipitor, Ceftin, vitamin D2, famotidine, ferrous sulfate, Luvox, gabapentin, insulin sliding scale, lactulose, loratidine, Reglan, Renvela, Kayexalate, Flomax, multivitamin. PHYSICAL EXAM VITAL SIGNS: Temperature 98.2, pulse 99, respiratory rate 16, blood pressure 143/97, oxygen saturation 92% on room air. GENERAL APPEARANCE: Lying in bed not in distress. HENT: Normocephalic, JVD not raised. Mass not palpable. Oral cavity dry, external appearance of ears and nose normal. EYES:Pupils equal. Conjunctiva normal. RESPIRATORY: Respiratory effort normal. Lungs diminished to auscultation. CARDIOVASCULAR: First and second sounds normal. No edema. ABDOMEN: Soft. Liver and spleen not palpable. No tenderness. No mass palpable. PSYCHIATRY: Unable to evaluate patient does not speak much EXTREMITIES: Left upper arm with AV fistula in place for hemodialysis. Positive for thrill and bruit INVESTIGATIONS: LABS: Hemoglobin Chest x-ray: Improving aeration left lung base. ASSESSMENT: -Pneumonia suspect gram-negative organism, possibly aspiration pneumonia , possibly causing sepsis present on admission, improving -Acute urinary tract infection present on admission. -Diabetes mellitus type 2, chronically on insulin, uncontrolled -Gastroesophageal reflux disease. -Hyperlipidemia. -Essential hypertension. -End-stage kidney disease on hemodialysis Saturday and Saturday. -Down syndrome. PLAN: Continue Ceftin, hemodialysis as scheduled per nephrology. Blood pressure is slightly above his norm plans for additional ultrafiltration in the hopes of blood pressure will improve. Blood glucose throughout the day has been uncontrolled, increased Levemir from 24 to 28 units at at bedtime. Scheduled for dialysis tomorrow. Appeared somewhat unwell after lunch today very warm hot and sweaty. We'll hold him back in additional day to ensure that is ready to go. Plan of care discussed at the bedside will follow closely. CLINICAL STAFF EDUCATOR statement: Patient was seen and examined by nurse practitioner Mere Perez and all elements of the case discussed with attending Dr. Bangura
[2017-08-05] MEDS ORDERED: INSULIN DETEMIR 100 UNIT/ML 10 ML VIAL SQ SCH (19:00)
[2017-08-05] MEDS ORDERED: PIPERACILLIN-TAZOBACTAM 3.375 GM in DEXTROSE/WATER 1 50ML.BAG IVPB SCH (20:00)
[2017-08-05 20:46] LABS: Glucose,Whole Blood 347 mg/dL (75-99)
[2017-08-05] MEDS: GABAPENTIN 100 MG CAP PO SCH (21:05)
[2017-08-05] MEDS: ATORVASTATIN 10 MG TAB PO SCH (21:05)
[2017-08-05] MEDS: AMOXIC-POT CLAV 875-125MG 1 EACH TAB PO SCH (21:05)
[2017-08-05] MEDS: LORATADINE 10 MG TAB PO SCH (21:05)
--- NOTE | 2017-08-05 22:30 | PN ---
PROGRESS NOTE Patient is seen for followup for end-stage renal disease. He was admitted to the hospital with pneumonia. He is maintained on a Saturday, , Saturday schedule for dialysis. EXAMINATION: Patient is currently comfortable, awake. He is not in any acute distress. Blood pressure was 152/88 this morning. Heart rate 100 per minute. Patient is afebrile. Examination of the heart S1, S2. Examination lungs bilateral breath sounds are heard. Abdomen is soft, nontender. Examination lower extremity shows no significant edema. VEHICLE FARE COLLECTOR exam is grossly intact. Patient moving all 4 extremities. He does have Down syndrome and is not communicating much at this time. LABORATORY DATA: Labs show from yesterday, potassium 4.0, hemoglobin 11.2. ASSESSMENT: 1. End-stage renal disease, on hemodialysis on a Saturday, , Saturday schedule. We will arrange for hemodialysis in a.m. 2. Pneumonia, left lower lobe, maintained on Levaquin. 3. Down syndrome. 4. Pulmonary hypertension. 5. Pyuria with urine cultures currently negative. PLAN: 1. Continue antibiotics. 2. Hemodialysis in a.m. 3. Possible discharge tomorrow after dialysis. MMODL / IJN: [id number] /
[2017-08-06] MEDS: LEVOTHYROXINE 88 MCG TAB PO SCH (06:24)
[2017-08-06] MEDS: METOCLOPRAMIDE 5 MG TAB PO SCH ×2 (06:24→16:17)
--- NOTE | 2017-08-06 07:22 | PN ---
PROGRESS NOTE DATE OF SERVICE: 08/05/2017 ATTENDING NOTE: The patient was seen and examined by me. Discussed with nurse practitioner, Ms. Perez. The patient tolerating his diet. Occasional cough. ON EXAM: LUNGS: Improved air entry. ASSESSMENT: 1. Pneumonia, possible aspiration causing sepsis present on admission. 2. Acute urinary tract infection. 3. Diabetes mellitus type 2, uncontrolled. PLAN: We will switch the patient's antibiotic to Augmentin and Levemir has been increased to 28 units and also increase the NovoLog to 6 units with meals. Hoping patient can be discharged tomorrow. MMODL / IJN: [id number] /
[2017-08-06] MEDS: IPRATROPIUM-ALBUTEROL 3 ML NEB INHALATION PRN (07:31)
[2017-08-06 08:10] LABS: Glucose,Whole Blood 97 mg/dL (75-99)
[2017-08-06 08:10] LABS: Glucose,Whole Blood 64 mg/dL (75-99)
[2017-08-06] MEDS: INSULIN ASPART 100 UNIT/ML 1 ML 10 ML VIAL SQ SCH ×7 (08:33→21:03)
[2017-08-06] MEDS: LACTULOSE 20 GM/30 ML CUP PO SCH ×2 (08:36→21:00)
[2017-08-06] MEDS: FERROUS SULFATE 325 MG TAB PO SCH (08:37)
[2017-08-06] MEDS: AMOXIC-POT CLAV 875-125MG 1 EACH TAB PO SCH (08:37)
[2017-08-06] MEDS: SODIUM POLYSTYRENE SULFONATE 15 GM/60 ML BOTTLE PO SCH (08:37)
[2017-08-06] MEDS: FAMOTIDINE 20 MG TAB PO SCH (08:37)
[2017-08-06] MEDS: B COMPLEX-VIT C-VIT E-ZINC 1 EACH TAB PO SCH (08:38)
[2017-08-06] MEDS: TAMSULOSIN 0.4 MG CAP.ER.24H PO SCH (08:38)
[2017-08-06 12:26] LABS: Glucose,Whole Blood 405 mg/dL (75-99)
[2017-08-06] MEDS: SEVELAMER 800 MG TAB PO SCH (16:17)
--- NOTE | 2017-08-06 17:16 | P.PN ---
Progress Note - Text Progress Note Date: 08/06/17 DATE OF SERVICE: 08/06/2017 PRESENTING COMPLAINT: Fever HISTORY OF PRESENT ILLNESS: 47-year-old male resident of a [place]) with Down syndrome, hemodialysis dependent brought in for fever unable to determine if other symptoms present patient doesn't really talk much. Chest x-ray revealed infiltrate and urine was infected. Admitted for the same. INTERVAL HISTORY: 08/06/2017: Lying in bed resting quietly opens eyes to verbal stimuli. Plan to discharge patient yesterday however on rounds patient felt warm concerns for infection. Afebrile overnight and remains afebrile. Vital signs are stable. Blood glucose dipped down to 64 this morning. Tolerating his diet eating 50-75% of his meals. Requires feeding assistance. Minimal cough, no sputum production. Breathing is improved. Up with some assistance. Hemodialysis scheduled for today. Last BM 08/06/2017. 08/05/2017: Lying in bed resting quietly. Has had a couple of difficult nights hence he sleeping. Opens his eyes to stimulus and goes right back to sleep. Feels warm to touch. The low-grade fever overnight 100.1, afebrile since that time. Breathing is improved coughing less no sputum production. 08/04/2017: Sitting up in bed being fed by one of the nurses aides. Did not sleep well, sitter at the bedside. Appetite is good and chewing swallowing and eating without difficulty. Blood pressure is slightly above his norm likely due to need for hemodialysis. Has pulled out multiple IVs and is a very difficult IV start. Switched IV antibiotics to oral. Continues not to talk very much does track with his eyes. Vital signs are stable afebrile, antibiotics and hemodialysis continue. Last BM 08/03/2017. 08/03/2017: Lying in bed, sort of smiling. Afebrile overnight, vital signs stable. Very little communication from the patient, does follow with his eyes. Waved at me as I entered the room. Hemodialysis scheduled for today. Appetite is poor is a one-to-one feed. Up with assistance. Last BM 08/03/2017. REVIEW OF SYSTEMS: Unable to perform due to patient condition. Has Down's syndrome. CURRENT MEDICATIONS DuoNeb, Lipitor, Ceftin, vitamin D2, famotidine, ferrous sulfate, Luvox, gabapentin, insulin sliding scale, lactulose, loratidine, Reglan, Renvela, Kayexalate, Flomax, multivitamin. PHYSICAL EXAM VITAL SIGNS: Temperature 97.0, pulse 81, respiratory rate 18, blood pressure 157/87. Oxygen saturation 95% on room air. GENERAL APPEARANCE: Lying in bed not in distress. HENT: Normocephalic, JVD not raised. Mass not palpable. Oral cavity normal, external appearance of ears and nose normal. EYES:Pupils equal. Conjunctiva normal. RESPIRATORY: Respiratory effort normal. Lungs diminished to auscultation. CARDIOVASCULAR: First and second sounds normal. No edema. ABDOMEN: Soft. Liver and spleen not palpable. No tenderness. No mass palpable. PSYCHIATRY: Unable to evaluate patient does not speak much EXTREMITIES: Left upper arm with AV fistula in place for hemodialysis. Positive for thrill and bruit INVESTIGATIONS: LABS: Accu-Cheks: 64, 97, 405. ASSESSMENT: -Pneumonia suspect gram-negative organism, possibly aspiration pneumonia , causing sepsis present on admission, improving -Acute urinary tract infection present on admission. -Diabetes mellitus type 2, chronically on insulin, uncontrolled -Gastroesophageal reflux disease. -Hyperlipidemia. -Essential hypertension. -End-stage kidney disease on hemodialysis Saturday and Saturday. -Down syndrome. PLAN: Continue Ceftin, hemodialysis today as scheduled per nephrology. Blood glucose throughout the day has been uncontrolled, overnight blood glucose dropped of 64 will decrease Levemir from 28 to 25 units at at bedtime. We'll hold him back until we normalize his blood glucose. Plan of care discussed at the bedside we will continue to follow closely. 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 Bangura
[2017-08-06 17:22] LABS: Glucose,Whole Blood 328 mg/dL (75-99)
--- NOTE | 2017-08-06 18:04 | PN ---
PROGRESS NOTE Patient is seen for followup for end-stage renal disease. He was admitted to the hospital with pneumonia. He is currently sleeping. He is arousable. Blood pressure was 137/86, heart rate 80 per minute. Patient is afebrile. EXAMINATION OF THE HEART: S1, S2. EXAMINATION OF LUNGS: Decreased breath sounds at the bases. ABDOMEN: Soft, non-tender. Examination of lower extremities shows no evidence of edema. No recent labs are available. ASSESSMENT: 1. End-stage renal disease, on hemodialysis on a Saturday, , Saturday schedule. 2. Left lower lobe pneumonia, maintained on Levaquin. 3. Down syndrome. 4. Pulmonary hypertension. PLAN: Hemodialysis today and discharge post dialysis. MMODL / IJN: [id number] /
--- NOTE | 2017-08-06 20:10 | PN ---
PROGRESS NOTE DATE OF SERVICE: 08/06/2017. ATTENDING NOTE: This patient was seen and examined by me. I discussed the case with the nurse practitioner Ms. Perez. Patient was admitted with aspiration pneumonia, which has gotten better. Also UTI. Sugars have been uncontrolled. Tolerating a diet. On examination, afebrile. Pulse 80, respiration 16, blood pressure 137/86. LUNGS: Improved air entry. Awake. INVESTIGATIONS: Accu-Cheks 64, 97, 405. ASSESSMENT: Diabetes mellitus, type 2, uncontrolled. PLAN: Will decrease patient's Levemir to 22 units, increase the NovoLog with meals to 7 units. Continue other treatment plan. Will follow. MMODL / IJN: [id number] /
[2017-08-06] MEDS ORDERED: INSULIN DETEMIR 100 UNIT/ML 10 ML VIAL SQ SCH ×2 (21:00)
[2017-08-06] MEDS: GABAPENTIN 100 MG CAP PO SCH (21:01)
[2017-08-06] MEDS: ATORVASTATIN 10 MG TAB PO SCH (21:01)
[2017-08-06] MEDS: LORATADINE 10 MG TAB PO SCH (21:02)
[2017-08-06] MEDS: AMOXIC-POT CLAV 500-125 MG 1 EACH TAB PO SCH (21:02)
[2017-08-06 21:04] LABS: Glucose,Whole Blood 239 mg/dL (75-99)
[2017-08-07] MEDS ORDERED: GELATIN SPONGE,ABSORB (SMALL) 1 EACH SPONGE ONE
[2017-08-07] MEDS: METOCLOPRAMIDE 5 MG TAB PO SCH (06:25)
[2017-08-07] MEDS: LEVOTHYROXINE 88 MCG TAB PO SCH (06:25)
[2017-08-07 07:51] LABS: Glucose,Whole Blood 61 mg/dL (75-99)
[2017-08-07 07:51] LABS: Glucose,Whole Blood 83 mg/dL (75-99)
[2017-08-07] MEDS: SODIUM POLYSTYRENE SULFONATE 15 GM/60 ML BOTTLE PO SCH (08:09)
[2017-08-07] MEDS: FAMOTIDINE 20 MG TAB PO SCH (08:09)
[2017-08-07] MEDS: LACTULOSE 20 GM/30 ML CUP PO SCH (08:09)
[2017-08-07] MEDS: FERROUS SULFATE 325 MG TAB PO SCH (08:10)
[2017-08-07] MEDS: AMOXIC-POT CLAV 500-125 MG 1 EACH TAB PO SCH (08:10)
[2017-08-07] MEDS: TAMSULOSIN 0.4 MG CAP.ER.24H PO SCH (08:10)
[2017-08-07] MEDS: INSULIN ASPART 100 UNIT/ML 1 ML 10 ML VIAL SQ SCH ×4 (08:10→12:55)
[2017-08-07 11:53] LABS: Glucose,Whole Blood 147 mg/dL (75-99)
[2017-08-07] MEDS: B COMPLEX-VIT C-VIT E-ZINC 1 EACH TAB PO SCH (12:54)
[2017-08-07 15:44] VITALS: BP 130/85; PULSE 81; RESP 18; TEMP 97.5
--- NOTE | 2017-08-07 16:08 | PN ---
PROGRESS NOTE Patient is seen for followup for end-stage renal disease. He was dialyzed yesterday. He should be going home today. He was admitted for pneumonia. On examination, blood pressure 135/97, heart rate 80 per minute. He is afebrile. EXAMINATION OF THE HEART: S1, S2. EXAMINATION OF LUNGS: Bilateral breath sounds are heard. ABDOMEN: Soft, non-tender. Examination of lower extremities shows no evidence of edema. 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 Patient is not usual baseline. ASSESSMENT: 1. End-stage renal disease, on hemodialysis on a Saturday, , Saturday schedule, via left arm AV fistula. 2. Left lower lobe pneumonia, maintained on antibiotics, currently improving. 3. Type 2 diabetes. 4. Chronic kidney disease mineral bone disorder. 5. Pulmonary hypertension. PLAN: Patient is stable for discharge from nephrology standpoint. He will follow up as outpatient for his routine dialysis tomorrow. MMODL / IJN: [id number] /
[2017-08-07 17:14] LABS: Glucose,Whole Blood 234 mg/dL (75-99)
--- NOTE | 2017-08-07 19:50 | DS ---
DISCHARGE SUMMARY DATE OF ADMISSION: 08/01/2017. DATE OF DISCHARGE: 08/07/2017 FINAL DIAGNOSES: 1. Pneumonia; suspect Gram-negative organism, including aspiration pneumonia causing sepsis, present on admission. 2. Acute urinary tract infection, present on admission. 3. Diabetes mellitus, type 2, chronically on insulin, uncontrolled. 4. Gastroesophageal reflux disease. 5. Hyperlipidemia. 6. Essential hypertension. 7. End-stage kidney disease, on hemodialysis, likely from diabetic nephropathy and hypertensive nephrosclerosis. 8. Down syndrome. HOSPITAL COURSE: This pleasant gentleman who has Down syndrome is able to communicate occasional words. He presented with aspiration pneumonia and was treated with antibiotics. The patient is somewhat sensitive to insulin and does go up and down a bit. Doing much better by the time of discharge. Sugars are better controlled. PHYSICAL EXAMINATION: LUNGS: Improved air entry. CARDIOVASCULAR: First and second sounds normal. Sitting up. Tolerating a diet. DISCHARGE MEDICATIONS: 1. Zocor 10 mg p.o. at bedtime. 2. Lactulose 10 grams p.o. b.i.d. 3. Insulin Lispro 7 units before meals t.i.d. plus sliding scale. 4. Iron. 5. Vitamin D2 50,000 units every 14 days. 6. Pepcid 20 mg p.o. daily. 7. Synthroid 175 mcg a day. 8. Claritin 10 mg at bedtime. 9. Reglan 5 mg p.o. b.i.d. 10.Kionex 15 grams p.o. daily. 11.Flomax 0.4 mg p.o. daily. 12.Vitamin B complex 1 capsule p.o. daily. 13.Luvox 150 mg p.o. b.i.d. 14.Neurontin 100 mg at bedtime. 15.Renvela 800 mg p.o. daily. 16.Augmentin 500 one tablet q.12. 17.Lantus 22 units subcutaneously at bedtime. DISPOSITION: [facility]. FOLLOWUP: Follow up with Dr. Muñoz on 08/14/2017. Follow up with Dr. Cazares on 08/12/2017. CBC and BMP in 3 days. MMODL / IJN: [id number] /
[2017-08-14] MEDS ORDERED: ERGOCALCIFEROL 50,000 UNIT CAP PO SCH (09:00)
--- NOTE | 2017-09-22 22:30 | PN ---
PROGRESS NOTE ADDENDUM: DATE OF SERVICE: August 06, 2017. ASSESSMENT: Diabetes mellitus type 2, uncontrolled, both from hypoglycemia and hyperglycemia. MMODL / IJN: [id number] /
== END 2017-08-07 17:31 | DRG 871 ==
LOC: EC 17:10 → 4MS4W 19:38
PROVIDERS: ADMIT Hospitalist; ATTEND Hospitalist
PROC: 5A1D70Z Performance of Urinary Filtration, Intermittent, Less than 6 Hours Per Day (ICD-10-PCS; principal; 2017-08-02)
DX: A41.9 Sepsis, unspecified organism (principal); J15.6 Pneumonia due to other Gram-negative bacteria; J69.0 Pneumonitis due to inhalation of food and vomit; E11.22 Type 2 diabetes mellitus with diabetic chronic kidney disease; I12.0 Hypertensive chronic kidney disease with stage 5 chronic kidney disease or end stage renal disease; E11.42 Type 2 diabetes mellitus with diabetic polyneuropathy; I27.20 Pulmonary hypertension, unspecified; N18.6 End stage renal disease; N39.0 Urinary tract infection, site not specified; K21.9 Gastro-esophageal reflux disease without esophagitis; E03.9 Hypothyroidism, unspecified; D63.1 Anemia in chronic kidney disease; M89.9 Disorder of bone, unspecified; E11.43 Type 2 diabetes mellitus with diabetic autonomic (poly)neuropathy; K31.84 Gastroparesis; E11.65 Type 2 diabetes mellitus with hyperglycemia; E78.5 Hyperlipidemia, unspecified; Q90.9 Down syndrome, unspecified; Z99.2 Dependence on renal dialysis; Z79.4 Long term (current) use of insulin; Z79.899 Other long term (current) drug therapy; Z98.41 Cataract extraction status, right eye; Z98.42 Cataract extraction status, left eye
CPT/HCPCS: 36415; 71046; 80048; 80053; 81001; 82009; 82150; 83036; 83605; 83690; 83880; 85025; 85610; 85730; 86706; 87040; 87086; 87502; 90935; 94640; 94760; 96361; 96365; 96366; 99285